=== PATIENT | male | born 1935 | race Caucasian/White ===

== ENCOUNTER 2024-12-01 11:12 | Inpatient (IN) | payer MEDICARE, SELFPAY ==
[2024-12-01] VITALS (12 sets, daily range): BP systolic 97–122; BP diastolic 48–87; BMI 20.3
[2024-12-01 07:17] LABS: % Basophils 0.2 % (0-2); % Immature Granulocytes 0.6 % (0-0.5); % Monocytes 4.7 % (1.7-9.3); % Neutrophils 92.5 % (42.2-75.2); Absolute Immature Granulocytes 0.1 10^3/uL (0-0.05); Absolute Lymphocytes 0.3 10^3/uL (1.2-3.4); Absolute Monocytes 0.7 10^3/uL (0.1-0.6); Absolute Neutrophils 14.2 10^3/uL (1.4-6.5); Hematocrit 32.1 % (39.0-52.0); Hemoglobin 10.6 g/dL (13.0-18.0); Mean Corpuscular Hgb 32.3 pg (27.0-31.0); Mean Corpuscular Volume 97.9 fL (80.0-94.0); Mean Platelet Volume 11.3 fL (7.4-10.4); Nucleated Red Blood Cells % 0 % (-); Platelet Count 164 10^3/uL (130-400); Red Blood Cell Count 3.28 10^6/uL (4.70-6.10); Red Cell Dist. Width 12.9 % (11.5-14.5); White Blood Cell Count 15.3 10^3/uL (4.8-10.8)
[2024-12-01 07:23] LABS: APTT 25.5 Sec (23.4-35.0); INR 1.14; PT 14.9 Sec (11.4-14.6)
[2024-12-01 07:35] LABS: ALT (SGPT) 18 U/L (0-50); AST (SGOT) 28 U/L (17-59); Albumin 3.9 g/dl (3.5-5.0); Alkaline Phosphatase 74 U/L (38-126); Blood Urea Nitrogen 57 mg/dl (9-20); Calcium 10.5 mg/dl (8.4-10.2); Carbon Dioxide 24 mmol/L (22-30); Chloride 111 mmol/L (98-107); Estimated Creatinine Clearance 26 ml/min; Glucose 145 mg/dl (70-99); Potassium 5.1 mmol/L (3.5-5.1); Sodium 142 mmol/L (135-145); Total Protein 6.3 g/dl (6.3-8.2); eGFR 38.53
--- NOTE | 2024-12-01 07:45 | ED.GENMED ---
History of Present Illness
General
Chief Complaint: Fainting/Passed Out
Source: patient, records and previous hospital records
Exam Limitations: altered mental status
Time Seen by Provider: 12/01/24 07:20
Nursing documentation reviewed up to this point in time: agreed with
History of Present Illness
History of Present Illness:
89-year-old male presents with a syncopal event, he does intermittent self-catheterization twice a day was fine last night today could not catheterize himself apparently passed out here found to be in urinary retention with significant hematuria,
after bladder scan and straight cath, greater than 800 cc of urine three-way catheter with CBI was ordered, labs are noted he has a leukocytosis acute renal insufficiency, denies any blood thinners although he is not the best historian does look
like he does take aspirin although he does tell me he sees Dr. Hopson
Past History
Past History
ED Past Medical History: CAD and Other (Intermittent self cath)
ED Past Surgical History: None
Social History
Tobacco: Non-smoker
Alcohol: None
Drug: None
Living: with family
Employment: Retired
Review of Systems
Review of Systems
All Other Systems: Not applicable
Constitutional: Reports fatigue; Denies fever
EENT: Reports no symptoms
Respiratory: Reports no symptoms
Cardiac: Reports syncope
ABD/GI: Reports abdominal pain
: Reports difficulty voiding and bleeding
Musculoskeletal: Reports no symptoms
Neurological: Reports weakness
Phy Exam
Physical Exam
Physical Exam:
Physical Exam
General: Chronically ill male
Neck: Dry lips
Heart: s1/s2 regular rate and rhythm, no murmur. equal radial pulses.
Lungs: no acute respiratory distress. clear bilaterally
Abdomen: Tender in suprapubic region
Neuro: alert and oriented. no focal neurological deficits repetitive
Skin: no rash
Psychiatric: well kept. interactive and cooperative
Extremities: no edema.
Course
Orders/Labs/Results
Orders:
Orders
12/01/24 06:49
Straight cath- Treatment ONCE
Urinalysis Reflex To Culture Urgent
12/01/24 07:04
Complete Blood Count/With Diff Urgent
Comprehensive Metabolic Panel Urgent
PTT Urgent
Prothrombin Time Urgent
12/01/24 07:07
CBI- Treatment PRN
Solution: saline
Irrigate to Clear?: Yes
Reyes Placement- Treatment ONCE
Reason for insertion: Acute Retention
12/01/24 07:35
Electrocardiogram (*1) Urgent
Reason for Study: Shortness of Breath
EKG- Treatment ONCE
0.9% Sodium Chloride 1000 ml [Nss] 1,000 ml IV BOLUS
Piperacillin/Tazo 2.25 Gram [Zosyn] 2.25 grams in 50 ml IV NOW
Abnormal Lab Results
12/01/24
07:04
WBC 15.3 H 10^3/uL
(4.8-10.8)
RBC 3.28 L 10^6/uL
(4.70-6.10)
Hgb 10.6 L g/dL
(13.0-18.0)
Hct 32.1 L %
(39.0-52.0)
MCV 97.9 H fL
(80.0-94.0)
MCH 32.3 H pg
(27.0-31.0)
MPV 11.3 H fL
(7.4-10.4)
Abs Immat Gran (auto) 0.1 H 10^3/uL
(0-0.05)
Absolute Neuts (auto) 14.2 H 10^3/uL
(1.4-6.5)
Absolute Lymphs (auto) 0.3 L 10^3/uL
(1.2-3.4)
Absolute Monos (auto) 0.7 H 10^3/uL
(0.1-0.6)
Immature Gran % 0.6 H %
(0-0.5)
Neutrophils % 92.5 H %
(42.2-75.2)
Lymphocytes % 2.0 L %
(20.5-51.1)
PT 14.9 H Sec
(11.4-14.6)
Chloride 111 H mmol/L
(98-107)
BUN 57 H mg/dl
(9-20)
Creatinine 1.7 H mg/dL
(0.7-1.3)
Glucose 145 H mg/dl
(70-99)
Calcium 10.5 H mg/dl
(8.4-10.2)
12/01/24 07:04
12/01/24 07:04
Vital Signs
Initial and Last Documented VS:
Initial Vital Signs
Pulse Resp Pulse Ox
79 18 98
12/01/24 06:47 12/01/24 06:47 12/01/24 06:47
Last Documented Vital Signs
Temp Pulse Resp Pulse Ox
98.1 F 82 18 98
12/01/24 06:59 12/01/24 06:59 12/01/24 06:59 12/01/24 06:59
MDM/Problems Addressed
Differential Diagnosis Includes:
Clot retention UTI malignancy mass
MDM/Problems Addressed:
Syncope trouble urinating clot retention
Chronic conditions affecting care: Other (Cardiac surgery)
Acute Exacerbation and/or Progression of Chronic Illness: Other (Cardiac)
*Radiology
Radiology exam reviewed: preliminary read by ED provider
*Pulse Oximetry
Patient hypoxic: no
Comment: 98
*EKG
Interpreted by ED Provider?: Yes
Interpretation: abnormal
Comparison EKG: no comparison EKG present
Heart Rate: 78
Rate: normal
Ischemia: non-specific ST changes
*Web Coordinator Interpretation
Rate: normal
Interpretation: normal
Heart Rate: 78
Rhythm: sinus
*Critical Care Note
Total Time (30-74mins, 75-104mins- exclusive of procedures): Not Applicable
Update Note
Update Note:
Update patient looks volume contracted, has a clot retention prior urine cultures noted will start CBI heart antibiotics check cultures start volume will require admission also check EKG due to syncope
8 AM, urine dark reddish maroonish requiring fairly aggressive CBI with intermittent hand irrigation prior urine culture noted antibiotics started volume started message sent to hospitalist and urologist will require admission
ED Attending Note
-
Portions of this chart may have been created with voice recognition software.� Occasional wrong word or��sound alike� substitutions may have occurred due to the inherent limitations of voice recognition software.
Discharge Plan
Departure
Patient Disposition: Admit
Date of Disposition: 12/01/24
Time of Disposition: 08:05
Admit to: Telemetry
Presentation/result/management discussed w/ accepting MD/DO: Hospitalist
Patient with high blood pressure during this ER visit?: No
Condition: Fair
Discharge Problem:
Clot retention of urine, Syncope and collapse
Prescriptions:
No Action
multivitamin Tablet
1 tab PO .EVERYOTHERDAY
vitamin A 2,400 mcg Capsule
8,000 unit PO DAILY
cyanocobalamin (vitamin B-12) [Vitamin B-12] 1,000 mcg Tablet
1,000 mcg PO DAILY
folic acid 400 mcg Tablet
0.4 mg PO DAILY
tamsulosin 0.4 mg Capsule
0.4 mg PO QPM
ascorbic acid (vitamin C) [Vitamin C] 500 mg Capsule, Extended Release
500 mg PO DAILY
pyridoxine (vitamin B6) [Vitamin B-6] 100 mg Tablet
100 mg PO DAILY
finasteride 5 mg Tablet
5 mg PO HS
ezetimibe [Zetia] 10 mg Tablet
10 mg PO DAILY
cholecalciferol (vitamin D3) [Vitamin D3] 125 mcg (5,000 unit) Tablet
125 mcg PO DAILY
Fiber Gummies 2 gram Tablet,Chewable
2 g PO DAILY
Probiotic 4X 10-15 mg Tablet,Delayed Release (Dr/Ec)
1 tab PO DAILY
acetaminophen 325 mg Tablet
650 mg PO Q6HPRN PRN (Reason: ZEE, mild pain, or fever >101F) Qty: 0 0RF
aspirin 81 mg Tablet,Chewable
81 mg PO DAILY Qty: 0 0RF
Referrals:
Thuan Campos MD [Family Provider, Internal Medicine]
Interventions
Interventions:
*Risk Screen - Suicide Last Done: 12/01/24 06:47
*General Assessment Last Done: 12/01/24 06:47
*ED COVID-19 Vaccine History Last Done: 12/01/24 06:47
Discharge Date and Time
Print Language: TAIWANESE
[2024-12-01] MEDS: NSS 1000 IV (08:03)
--- NOTE | 2024-12-01 08:28 | EDRN ---
Pt arrived via EMS post syncopal epsiode after self catheterization. Daughter told EMS he has 'passed out' several times over past couple of days.Pt states he feels 'super tired' Hematuria started this am, but unable to empty bladder. Pt very
repetitive about daily routines and doesn't understand why he is here. Bladder scan showed > 850mls. Straight cath was unsuccessful in emptying bladder. [address] way 18french coude was placed without complication however very little outflow. Manually
irrigated several times and several clots dislodged. Urine grossly bloody and lots of clots passed. bladder eventually began to run with ease. Emptied 2200mls and 2nd irrigation bag running.
--- NOTE | 2024-12-01 08:30 | HPS.HSE ---
Family Physician
-
Family Physician: Thuan Campos
Chief Complaint
-
Hematuria
History of Present Illness
89-year-old male with past medical history of CAD, intermittently self catheterizes now presenting for inability to catheterize himself with subsequent syncopal episode. Patient noted to have significant urinary retention and hematuria evident on
bladder scan and straight cath. 800 cc of urine was noted upon self-catheterization. Pulse upon admission 79, respiratory rate 18, blood pressure 102/62, saturating 96% on room air. Afebrile. White count noted to be 15.3. Creatinine 1.7 (1.13
years ago). Follows up with Dr. Henderson of his outpatient. Is on aspirin, no other anticoagulation. No imaging from ED. Was given Zosyn, 1 L normal saline.
Medical History
Past Medical History
Past Medical History: Reports CAD and Other (Urinary retention, intermittently self-catheterizes)
Past Surgical History: Reports None
Social History
Tobacco: Non-smoker
Alcohol: None
Drug: None
Family History
Family History: Not pertinent
Allergies / Home Medications
Allergies reflects when Allergies were last updated in [employer].
Home Medications with original date entered in [employer]
Allergy/Medication List:
Allergies
Allergy/AdvReac Type Severity Reaction Status Date / Time
ciprofloxacin (From Cipro) Allergy Unknown Verified 05/27/22 07:34
Home Medications
ascorbic acid (vitamin C) 500 mg capsule,extended release (Vitamin C) 500 mg PO DAILY Supplement 03/29/22
cholecalciferol (vitamin D3) 125 mcg (5,000 unit) tablet (Vitamin D3) 125 mcg PO DAILY Supplement 03/29/22
cyanocobalamin (vitamin B-12) 1,000 mcg tablet (Vitamin B-12) 1,000 mcg PO DAILY Supplement 03/29/22
ezetimibe 10 mg tablet (Zetia) 10 mg PO DAILY High cholesterol 03/29/22
finasteride 5 mg tablet 5 mg PO HS Urinary issue/Prostatic 03/29/22
folic acid 400 mcg tablet 0.4 mg PO DAILY Supplement 03/29/22
multivitamin 1 tab PO .EVERYOTHERDAY Supplement 03/29/22
pyridoxine (vitamin B6) 100 mg tablet (Vitamin B-6) 100 mg PO DAILY Supplement 03/29/22
tamsulosin 0.4 mg capsule 0.4 mg PO QPM Urinary issue 03/29/22
vitamin A 2,400 mcg capsule 8,000 unit PO DAILY Supplement 03/29/22
inulin 2 gram chewable tablet (Fiber Gummies) 2 g PO DAILY Gastrointestinal issue 05/12/22
B.animalis-B.bifidum-B.infantis-B.longum 10 mg-15 mg tablet,delay rel (Probiotic 4X) 1 tab PO DAILY Gastrointestinal issue 05/27/22
acetaminophen 325 mg tablet 650 mg (2 x 325 mg) PO Q6HPRN PRN ZEE, mild pain, or fever >101F #0 tabs 05/28/22
aspirin 81 mg chewable tablet 81 mg PO DAILY #0 tabs 05/28/22
Review of Systems
-
History Source: Patient
A 12 point ROS was completed and negative except as noted: Yes
Physical Exam
Vital Signs
Vital Signs
Temp Pulse Resp BP Pulse Ox
98.1 F 79 18 102/62 96
12/01/24 06:59 12/01/24 08:00 12/01/24 08:00 12/01/24 08:00 12/01/24 08:00
Physical Exam
General: Well Developed and Well Nourished
HEENT: NormoCephalic
Respiratory: Clear
Cardiac: S1/S2
GI: Non Tender and Other
Genito-urinary: Other (Tender in suprapubic region)
Musculoskeletal: No Clubbing
Neuro: Awake, Alert, Oriented and AO x 3
Laboratory Results
-
12/01/24 07:04
12/01/24 07:04
Laboratory Results
PT 14.9 Sec (11.4-14.6) H 12/01/24 07:04
INR 1.14 12/01/24 07:04
APTT 25.5 Sec (23.4-35.0) 12/01/24 07:04
Total Bilirubin 1.0 mg/dl (0.2-1.3) 12/01/24 07:04
AST 28 U/L (17-59) 12/01/24 07:04
ALT 18 U/L (0-50) 12/01/24 07:04
Alkaline Phosphatase 74 U/L (38-126) 12/01/24 07:04
Data Reviewed
-
Lab Data: Labs Reviewed by me
Impression/Plan
-
IMPRESSION:
89-year-old male with past medical history of CAD, intermittently self catheterizes now presenting for inability to catheterize himself with subsequent syncopal episode.
PLAN:
#Syncopal episode
� Most likely vasovagal secondary to catheterization and inability to obtain urine
� Continue telemetry
� Can trend troponin, no chest pain
- F/u EKG
#Hematuria
� Unclear if infected urine or not
� UA still pending, follow-up urine cultures if positive
� Continue empiric antibiotics for now
� CBI in place
� Urology consulted
� CT abdomen pelvis -moderate hemorrhagic products in the bladder; many large bladder stones; moderate diffuse bowel thickening concerning for cystitis versus bladder outlet obstruction; severe prostate hypertrophy
�Hold aspirin for now
#Urinary retention
-2/2 to bladder stones and prostate hypertrophy
-Moderate hemorrhagic products in the bladder; many large bladder stones; moderate diffuse bowel thickening concerning for cystitis versus bladder outlet obstruction; severe prostate hypertrophy
- Plan to go to the OR tomorrow for evacuation of clot, fulguration and retrieval of any bladder stones
#leukocytosis
-reactive v 2/2 to infectious source
-empiric abx
-f/u cultures
#RAJ
� Most likely suspect postrenal with urinary retention
� CT abdomen/pelvis
� Monitor with CBI
� IV fluids
#DVT prophylaxis
� SCDs
[2024-12-01] MEDS: ZOSYN 50 IV ×3 (08:47→18:02)
[2024-12-01 10:07] LABS: Urine Albumin 4+ (Neg - Trace); Urine Bilirubin Negative (Negative); Urine Glucose Negative (Negative); Urine Ketone Negative (Negative); Urine Leukocyte 1+ (Negative); Urine Nitrite Negative (Negative); Urine Occult Blood 4+ (Negative); Urine Specific Gravity 1.005 (<1.030); Urine Urobilinogen Negative (Neg - 1+)
[2024-12-01 10:08] LABS: Urine Character Bloody (Clear); Urine Color Red
[2024-12-01 10:16] LABS: Urine Red Blood Cell >100 /HPF (0-2)
--- NOTE | 2024-12-01 10:18 | W.PN.URO.CBU ---
Today's Communication / Plan
-
TO OP ROOM TUESDAY CBI AND HAND IRRIGATEUNTILTHEN
Assessment / Plan
-
HUGE PROSTAE NOW CLORS AND ELEVTAED WBC AND BLADDER STONES TRIED TO HABD IRRIGATE BUT STIL MUCH DEBRIS WILL TAKE TO OP ROOM TUESDAY AM AND EVACUATION OF CLOT FULGERATION AND RETRIEV EIF ABLE ANY BLADDER STONES
Diagnosis
-
Date of Service: December 01, 2024
-
Patient Diagnosis:
BPH HEMATURIA POSSIBLY UTI AND BLADDER STONES WITH CLOT RETENTION
Post Op Day:
Subjective
-
CANNOT VOID
Objective
-
Vital Signs
Temp Pulse Resp BP Pulse Ox
98.1 F 79 18 102/62 96
12/01/24 06:59 12/01/24 08:00 12/01/24 08:00 12/01/24 08:00 12/01/24 08:00
Intake and Output
11/30/24 12/01/24 12/02/24
06:59 06:59 06:59
Output Total 1000 / 1000
Balance -1000 / -1000
Output:
True Urine Output from CBI 1000 / 1000
Laboratory Results
12/01/24 07:04
12/01/24 07:04
Review of Systems
-
: Difficulty Voiding and Bleeding
Physical Exam
-
General - well developed, well nourished, no acute distress
Chest - clear bilaterally
Abdomen - soft, non-tender, positive bowel sounds, no CVAT, no incisional pain or distention
Genitalia - normal
Rectal - normal
Skin - warm & dry with no rash
Neuro - AOx3, no motor deficits
Extremities - no clubbing, no cyanosis, no edema
Incision - clean, dry
Dressing - clean, dry, intact
Care Review
Data Reviewed
Discussed with: Hospitalist and Nursing
CT Scan: Image Pers Reviewed
--- NOTE | 2024-12-01 10:59 | CM ---
Reviewed the chart notes and spoke with the patient at the bedside. The patient resides with his daughter in a two story home with no steps to enter. The patient reports no DME/VN/SNF in the past. The patient confirmed preferred pharmacy is
[facility]. CM continues to be available to patient/family and is monitoring medical plan for needs at discharge.
Plan: Discharge plans will depend on the patient's progress.
--- NOTE | 2024-12-01 11:51 | EDRN ---
CBI stopped flowing and we could not flush ports. Urology came back down and we had to change 3 way cath for second time. Pulled Lido urojet and 22 greek cath placed by urology. Irrigation restarted and running clearer then previous
[2024-12-01] MEDS: LR 1000 IV ×2 (12:52→17:42)
[2024-12-01] MEDS: FLOMAX 0.4 MG PO ×2 (13:04→16:57)
--- NOTE | 2024-12-01 13:29 | PTCARENOTE ---
PT admitted from ED AOx3 though very forgetful, bed alarm placed, daughter at bedside. LCTA B/L on RA. NSR. abd soft NT. CBI running fast with bright red many clots. stat lock applied. Skin CDI +PP b/l no edema. IVF and IV ABT. NPO after MN. ,
reviewed POC with pt and daughter, whom he lives with. CB in reach instructed to use.
[2024-12-01 13:30] LABS: Troponin I 0.013 ng/ml
--- NOTE | 2024-12-01 16:15 | PTCARENOTE ---
contacting attending r/t HR sinus tach 130's-140's. BP 99/45, LR bolus. pt c/o 04/05 pain, inconsistent with where he is reporting the pain is- sometimes stated abd, other times penis. [address] way cath irrigated. large thick clot. BP, pain and HR
improved. HR 97 NSR
[2024-12-01 18:40] LABS: Troponin I 0.014 ng/ml
[2024-12-01] MEDS: PROSCAR 5 MG PO (21:35)
[2024-12-01 23:41] LABS: Troponin I < 0.012 ng/ml
[2024-12-02] VITALS (14 sets, daily range): BP systolic 98–120; BP diastolic 51–68
[2024-12-02] MEDS: ZOSYN 50 IV ×4 (01:13→23:04)
[2024-12-02] MEDS: LR 1000 IV ×2 (06:09→20:30)
[2024-12-02 07:09] LABS: Hematocrit 22.1 % (39.0-52.0); Hemoglobin 7.2 g/dL (13.0-18.0); Mean Corp Hgb Conc. 32.9 g/dL (33.0-37.0); Mean Corpuscular Hgb 32.1 pg (27.0-31.0); Mean Corpuscular Volume 97.8 fL (80.0-94.0); Mean Platelet Volume 11.8 fL (7.4-10.4); Platelet Count 122 10^3/uL (130-400); Red Blood Cell Count 2.24 10^6/uL (4.70-6.10); Red Cell Dist. Width 13.2 % (11.5-14.5); White Blood Cell Count 9.7 10^3/uL (4.8-10.8)
[2024-12-02 07:14] LABS: Blood Urea Nitrogen 51 mg/dl (9-20); Carbon Dioxide 27 mmol/L (22-30); Chloride 112 mmol/L (98-107); Estimated Creatinine Clearance 37 ml/min; Glucose 94 mg/dl (70-99); Sodium 141 mmol/L (135-145); eGFR 58.53
--- NOTE | 2024-12-02 08:41 | W.PN.HOSP.TC ---
Today's Communication/Plan
-
see A/P
Assessment / Plan
Assessment / Plan
HPI: 89-year-old male with past medical history of CAD, intermittently self catheterizes; p/w inability to catheterize himself with subsequent syncopal episode. Patient noted to have significant urinary retention and hematuria evident on bladder
scan and straight cath. 800 cc of urine was noted upon self-catheterization.
White count noted to be 15.3 on admission. Creatinine 1.7 (1.13 years ago). Follows up with Dr. Henderson of his outpatient. On aspirin, no other anticoagulation. Was given Zosyn, 1 L normal saline.
A/P:
# Syncopal episode
Most likely vasovagal secondary to catheterization and inability to obtain urine
Continue telemetry
troponin negative, no chest pain
# Gross hematuria
# Acute blood loss anemia
# Urinary retention, 2/2 to bladder stones and prostate hypertrophy
Hgb 10.6 -> 7.2 today, transfuse [address] abdomen pelvis- moderate hemorrhagic products in the bladder; many large bladder stones; moderate diffuse bowel thickening concerning for cystitis versus bladder outlet obstruction; severe prostate hypertrophy
Follow urine culture
Cont empiric antibiotic with Zosyn for now
Cont CBI
Urology on board, plan for clot evacuation today 12/02
Hold aspirin for now
# leukocytosis, resolved hence likely reactive
Cont empiric abx as above
f/u cultures
# RAJ, likely combination of prerenal and postrenal component
SCr improve from 1,.7 to 1.2 following IVF
Cont gentle IVF
DVT prophylaxis� SCDs
FC
DW RN
Anticipated Discharge: > 48 hours
Subjective/Interval History
-
Date of Service: December 02, 2024
Objective Data
-
Labs:
Laboratory Results
12/02/24 12/02/24
05:33 05:34
WBC 9.7
Hgb 7.2 L D
Hct 22.1 L
Plt Count 122 L D
Sodium 141
Potassium 4.0
Chloride 112 H
Carbon Dioxide 27
BUN 51 H
Creatinine 1.2
Glucose 94
Calcium 9.0 D
Vital Signs:
Vital Signs
Temp Pulse Resp BP Pulse Ox
36.6 C 91 16 107/58 95
12/02/24 07:29 12/02/24 07:29 12/02/24 07:29 12/02/24 07:29 12/02/24 07:29
I&O
12/01/24 12/02/24 12/03/24
06:59 06:59 06:59
Intake Total 900 / 900
Output Total 3250 / 3250
Balance -2350 / -2350
Review of Systems
-
History Source: Patient
All other systems: Reviewed and negative
Physical Exam
-
General: Well Developed, No Apparent Distress, Comfortable and Conversant; Negative Respiratory Distress
HEENT: Normocephalic, Atraumatic, Nose Appears Normal and Ears Appear Normal; Negative Oxygen
Respiratory: Clear to Auscultation and Non Labored Respirations; Negative Accessory Resp Muscle Use
Cardiac: Regular Rhythm and S1/S2
GI: Soft, Nontender, Nondistended and Normal Bowel Sounds
Genito-urinary: Continuous Bladder Irrigation
Skin: Warm and Dry
Neuro: Awake and Alert
Psych: Calm and Intact Judgement/Insight
Data Reviewed
-
CT Scan: Report Reviewed by me
Labs: Labs Reviewed by me
--- NOTE | 2024-12-02 09:24 | PTCARENOTE ---
Blood consent needed for blood transfusion. Dr. Dunham notified and came to floor. Per Dr. Dunham. PRBCs ordered and will be transfused in the OR or back when pt arrives to floor. Care ongoing.
--- NOTE | 2024-12-02 12:47 | W.SUR.POST ---
Surgical Immediate Post Op
Note
Pre Op Diagnosis: hemorrhagic cystitis clot retention bph
Post Op Diagnosis: same
Procedure Performed:cysto evacuation of clots fulgeration bleeding sites
Primary Surgeon: zelda
Secondary Surgeons:
Anesthesia: general dr cortez
Estimated Blood Loss: 5
Fluids: nss
Drains/Shunts: [address]
Specimens/Cultures:
Doppler/Duplex/Angio (Y/N):
Complications: 0
Operative Findings: huge amount clots ab fraible prostate and multiple lg bladder stones
[2024-12-02] MEDS: ZOSYN IV (13:04)
--- NOTE | 2024-12-02 13:41 | PTCARENOTE ---
Pt returned from OR at 1335 in a bed with a 3 way edward and CBI output is clear. Pt is 97% on RA. Pt has knee high scds/teds. Pt oriented to room and call ravi. Bed alarm in place for safety. Bed locked and in lowest position. Care ongoing.
[2024-12-02] MEDS: FLOMAX 0.4 MG PO (17:47)
[2024-12-02] MEDS: PROSCAR 5 MG PO (21:05)
[2024-12-03] VITALS (8 sets, daily range): BP systolic 93–126; BP diastolic 38–78; PULSE 77
[2024-12-03] MEDS: ZOSYN 50 IV ×4 (05:04→23:00)
[2024-12-03] MEDS: LR 1000 IV ×2 (05:05→18:40)
[2024-12-03 07:13] LABS: Hematocrit 23.4 % (39.0-52.0); Hemoglobin 7.8 g/dL (13.0-18.0); Mean Corp Hgb Conc. 33.3 g/dL (33.0-37.0); Mean Corpuscular Hgb 31.6 pg (27.0-31.0); Mean Corpuscular Volume 94.7 fL (80.0-94.0); Mean Platelet Volume 11.7 fL (7.4-10.4); Platelet Count 122 10^3/uL (130-400); Red Blood Cell Count 2.47 10^6/uL (4.70-6.10); Red Cell Dist. Width 14.8 % (11.5-14.5); White Blood Cell Count 10.9 10^3/uL (4.8-10.8)
[2024-12-03 08:17] LABS: Blood Urea Nitrogen 34 mg/dl (9-20); Calcium 9.2 mg/dl (8.4-10.2); Carbon Dioxide 27 mmol/L (22-30); Chloride 110 mmol/L (98-107); Estimated Creatinine Clearance 34 ml/min; Glucose 88 mg/dl (70-99); Potassium 4.4 mmol/L (3.5-5.1); Sodium 138 mmol/L (135-145); eGFR 53.17
--- NOTE | 2024-12-03 10:22 | W.PN.HOSP.TC ---
Addendum entered and electronically signed by Emily Dunham MD 12/03/24 11:02:
pt refused blood transfusion today.
Cont to monitor Hgb
Original Note:
Today's Communication/Plan
-
see A/P
additional PRBC today
PT OT Eval
Assessment / Plan
Assessment / Plan
HPI: 89-year-old male with past medical history of CAD, intermittently self catheterizes; p/w inability to catheterize himself with subsequent syncopal episode. Patient noted to have significant urinary retention and hematuria evident on bladder
scan and straight cath. 800 cc of urine was noted upon self-catheterization.
White count noted to be 15.3 on admission. Creatinine 1.7 (1.13 years ago). Follows up with Dr. Henderson of his outpatient. On aspirin, no other anticoagulation. Was given Zosyn, 1 L normal saline.
A/P:
# Syncopal episode
Most likely vasovagal secondary to catheterization and inability to obtain urine
Continue telemetry
troponin negative, no chest pain
# Gross hematuria
# Acute blood loss anemia
# Urinary retention, 2/2 to bladder stones and prostate hypertrophy
s/p 1 unit PRBC, transfuse additional PRBC today for Hgb at 7.8
CT AP: moderate hemorrhagic products in the bladder; many large bladder stones; moderate diffuse bowel thickening concerning for cystitis versus bladder outlet obstruction; severe prostate hypertrophy
urine culture with GNR and Enterococcus
Cont empiric antibiotic Zosyn
s/p clot evacuation 6/8 per Uro
s/p CBI
Hold aspirin for now
# leukocytosis, likely reactive
Cont empiric abx as above
f/u cultures
# RAJ, likely combination of prerenal and postrenal components
SCr improve from 1.7 to 1.3 today
Cont gentle IVF
DVT prophylaxis� SCDs
FC
DW RN
Anticipated Discharge: 24 - 48 hours
Subjective/Interval History
-
Date of Service: December 03, 2024
Objective Data
-
Labs:
Laboratory Results
12/03/24
06:46
WBC 10.9 H
Hgb 7.8 L
Hct 23.4 L
Plt Count 122 L
Sodium 138
Potassium 4.4
Chloride 110 H
Carbon Dioxide 27
BUN 34 H
Creatinine 1.3
Glucose 88
Calcium 9.2
Vital Signs:
Vital Signs
Temp Pulse Resp BP Pulse Ox
36.6 C 56 18 93/38 94
12/03/24 07:10 12/03/24 07:10 12/03/24 07:10 12/03/24 07:10 12/03/24 07:10
I&O
12/02/24 12/03/24 12/04/24
06:59 06:59 06:59
Intake Total 900 / 900 2180 / 2180 120 / 120
Output Total 3250 / 3250 3050 / 3050 200 / 200
Balance -2350 / -2350 -870 / -870 -80 / -80
Review of Systems
-
History Source: Patient
All other systems: Reviewed and negative
Physical Exam
-
General: Well Developed, No Apparent Distress, Comfortable and Conversant; Negative Respiratory Distress
HEENT: Normocephalic, Atraumatic, Nose Appears Normal and Ears Appear Normal; Negative Oxygen
Respiratory: Clear to Auscultation and Non Labored Respirations; Negative Accessory Resp Muscle Use
Cardiac: Regular Rhythm and S1/S2
GI: Soft, Nontender, Nondistended and Normal Bowel Sounds
Genito-urinary: Continuous Bladder Irrigation
Skin: Warm and Dry
Neuro: Awake and Alert
Psych: Calm and Intact Judgement/Insight
Data Reviewed
-
CT Scan: Report Reviewed by me
Labs: Labs Reviewed by me
--- NOTE | 2024-12-03 10:43 | W.PN.URO.CBU ---
Today's Communication / Plan
-
teach pt leb=g bag edward assisted when ok by hospitaoist with edward
Assessment / Plan
-
henmuria resolved home when medical objectives met but with edward will remover as outptient teach edward leg bag care
Diagnosis
-
Date of Service: December 03, 2024
-
Patient Diagnosis:
Post Op Day:
Patient Diagnosis:
BPH HEMATURIA POSSIBLY UTI AND BLADDER STONES WITH CLOT RETENTION
Post Op Day:
Subjective
-
urine clear
Objective
-
Vital Signs
Temp Pulse Resp BP Pulse Ox
97.9 F 56 18 93/38 94
12/03/24 07:10 12/03/24 07:10 12/03/24 07:10 12/03/24 07:10 12/03/24 07:10
Intake and Output
12/02/24 12/03/24 12/04/24
06:59 06:59 06:59
Intake Total 900 / 900 2180 / 2180 120 / 120
Output Total 3250 / 3250 3050 / 3050 200 / 200
Balance -2350 / -2350 -870 / -870 -80 / -80
Intake:
Oral fluids 480 / 480 120 / 120
IV fluids (Total) 800 / 800 1550 / 1550
normosol 50 / 50
IV piggybacks 100 / 100 150 / 150
Output:
True Urine Output from CBI 3250 / 3250 3050 / 3050 200 / 200
True urine output from hand 0 / 0 0 / 0
irrigation
Laboratory Results
12/03/24 06:46
12/03/24 06:46
Review of Systems
-
: Difficulty Voiding
Physical Exam
-
General - well developed, well nourished, no acute distress
Chest - clear bilaterally
Abdomen - soft, non-tender, positive bowel sounds, no CVAT, no incisional pain or distention
Genitalia - normal
Rectal - normal
Skin - warm & dry with no rash
Neuro - AOx3, no motor deficits
Extremities - no clubbing, no cyanosis, no edema
Incision - clean, dry
Dressing - clean, dry, intact
Care Review
Data Reviewed
Discussed with: Nursing
--- NOTE | 2024-12-03 11:00 | PTCARENOTE ---
Pt refusing one unit of PRBC's ordered this morning for a HGB of 7.8. Ordering Physician Dr Dunham notified.
--- NOTE | 2024-12-03 14:35 | CM ---
CM following re: discharge planning.
Reviewed pt's chart, met with pt.
PT and OT evaluations noted - home PT/OT recommended. pt is aware he will have Reyes bag to go home with and pt expressed unclear ex[planation to whether or not he will agree to have Reyes bag ay home. At some point pt agrees to have Reyes bag and
emphasized his idea of self catheterization and a few minutes later pt criticized the plan to go home with Reyes.
At the end of conversation pt agrees to have VN services and he preferred [facility].
A referral to [facility] made.
Please fax discharge instructions to [facility] [phone]
D/C plan: home with [facility] and family support.
CM will follow with discharge plan updaters as hospitalization progresses
--- NOTE | 2024-12-03 15:19 | VNURNOTE ---
[facility] liaison met with patient at bedside. Explained indications for [facility], frequency, homebound status. He has not seen a PCP in about 4 years. Offered [facility], patient was receptive. Explained to pt that he would need to be seen by
[facility] for [facility] to accept. Patient adamantly refused [facility] and is refusing to go home with indwelling edward. Patient talked in circles and continued to say that he was straight cathing himself 2x/day at home and urinating on his own in
between st. caths. The patient stated he had an indwelling edward about 3 years ago and if he goes home w/it, he could manage it himself. Patient gave this author permission to speak with his daughter Geetha. Called Geetha, explained above. She
lives w/patient and was aware of his st cath schedule. She will speak with patient but understood that he did refuse for me.
Refusing [facility]
Liaison will follow up tomorrow to determine if patient changes his mind.
No referral placed yet.
[2024-12-03] MEDS: FLOMAX 0.4 MG PO (18:40)
[2024-12-03] MEDS: PROSCAR 5 MG PO (22:25)
[2024-12-04 03:00] VITALS: BP 105/48
[2024-12-04] MEDS: ZOSYN 50 IV ×3 (05:07→17:12)
[2024-12-04] MEDS: LR 1000 IV (05:40)
[2024-12-04 06:10] LABS: Hematocrit 23.1 % (39.0-52.0); Hemoglobin 7.6 g/dL (13.0-18.0); Mean Corp Hgb Conc. 32.9 g/dL (33.0-37.0); Mean Corpuscular Hgb 31.4 pg (27.0-31.0); Mean Corpuscular Volume 95.5 fL (80.0-94.0); Mean Platelet Volume 11.7 fL (7.4-10.4); Platelet Count 127 10^3/uL (130-400); Red Blood Cell Count 2.42 10^6/uL (4.70-6.10); Red Cell Dist. Width 14.5 % (11.5-14.5); White Blood Cell Count 9.3 10^3/uL (4.8-10.8)
--- NOTE | 2024-12-04 06:15 | PTCARENOTE ---
Pt was very restless overnight, heart monitor reading were affected, multiple lead & electrodes changes, and even changed the monitor box were done to get clearer readings. HR & rhythm changes prompted an EKG per protocol, MONOTYPE CASTER notified placed order
for EKG and added MG to morning labs. EKG showed NSR with PACs. Copy of EKG TT to MONOTYPE CASTER and placed in pt chart.
[2024-12-04 06:31] LABS: Blood Urea Nitrogen 27 mg/dl (9-20); Carbon Dioxide 25 mmol/L (22-30); Chloride 111 mmol/L (98-107); Estimated Creatinine Clearance 37 ml/min; Glucose 96 mg/dl (70-99); Magnesium 1.9 mg/dl (1.6-2.3); Potassium 3.7 mmol/L (3.5-5.1); Sodium 139 mmol/L (135-145); eGFR 58.53
[2024-12-04 07:08] VITALS: BP 94/50
--- NOTE | 2024-12-04 10:28 | VNURNOTE ---
Spoke with patient at bedside. He continues to refuse [facility]. He is hoping to have edward removed at DC and resume straight cathing. Inquired if he spoke with his daughter last night and he stated he did and she agrees w/declining VN. DOMINGUEZ Cortez
updated.
[2024-12-04 11:05] VITALS: BP 108/56
--- NOTE | 2024-12-04 11:05 | W.PN.HOSP.TC ---
Addendum entered and electronically signed by Emily Dunham MD 12/04/24 11:52:
d/w Uro, since pt is refusing to continue edward following DC, OK to discontinue edward here and check TOV. Cont self cath as [employer]
Original Note:
Today's Communication/Plan
-
follow urine culture
Assessment / Plan
Assessment / Plan
HPI: 89-year-old male with past medical history of CAD, intermittently self catheterizes; p/w inability to catheterize himself with subsequent syncopal episode. Patient noted to have significant urinary retention and hematuria evident on bladder
scan and straight cath. 800 cc of urine was noted upon self-catheterization.
White count noted to be 15.3 on admission. Creatinine 1.7 (1.13 years ago). Follows up with Dr. Henderson of his outpatient. On aspirin, no other anticoagulation. Was given Zosyn, 1 L normal saline.
A/P:
# Syncopal episode
Most likely vasovagal secondary to catheterization and inability to obtain urine
Continue telemetry
troponin negative, no chest pain
# Gross hematuria
# Acute blood loss anemia
# Urinary retention, 2/2 to bladder stones and prostate hypertrophy
s/p 1 unit PRBC
pt refused additional blood transfusion
Hgb at 7.[address] AP: moderate hemorrhagic products in the bladder; many large bladder stones; moderate diffuse bowel thickening concerning for cystitis versus bladder outlet obstruction; severe prostate hypertrophy
urine culture growing Klebsiella and Enterococcus, awaiting sensitivity of Enterococcus.
Cont empiric antibiotic Zosyn
s/p clot evacuation 6/8 per Uro
s/p CBI
Hold aspirin for now
# leukocytosis, likely reactive, resolved
Cont empiric abx as above
f/u cultures
# RAJ, likely combination of prerenal and postrenal components
SCr improve from 1.7 to 1.2 today
DC further IVF
DVT prophylaxis� SCDs
FC
Anticipated Discharge: Within 24 hours
Subjective/Interval History
-
Date of Service: December 04, 2024
Objective Data
-
Labs:
Laboratory Results
12/04/24
05:16
WBC 9.3
Hgb 7.6 L
Hct 23.1 L
Plt Count 127 L
Sodium 139
Potassium 3.7
Chloride 111 H
Carbon Dioxide 25
BUN 27 H
Creatinine 1.2
Glucose 96
Calcium 9.0
Vital Signs:
Vital Signs
Temp Pulse Resp BP Pulse Ox
37.4 C 65 16 94/50 97
12/04/24 07:08 12/04/24 07:08 12/04/24 07:08 12/04/24 07:08 12/04/24 07:08
I&O
12/03/24 12/04/24 12/05/24
06:59 06:59 06:59
Intake Total 2180 / 2180 1840 / 1840 720 / 720
Output Total 3050 / 3050 1300 / 1300 950 / 950
Balance -870 / -870 540 / 540 -230 / -230
Review of Systems
-
History Source: Patient
All other systems: Reviewed and negative
Physical Exam
-
General: Well Developed, No Apparent Distress, Comfortable and Conversant; Negative Respiratory Distress
HEENT: Normocephalic, Atraumatic, Nose Appears Normal and Ears Appear Normal; Negative Oxygen
Respiratory: Clear to Auscultation and Non Labored Respirations; Negative Accessory Resp Muscle Use
Cardiac: Regular Rhythm and S1/S2
GI: Soft, Nontender, Nondistended and Normal Bowel Sounds
Genito-urinary: Negative Continuous Bladder Irrigation
Skin: Warm and Dry
Neuro: Awake and Alert
Psych: Calm and Intact Judgement/Insight
Data Reviewed
-
CT Scan: Report Reviewed by me
Labs: Labs Reviewed by me
--- NOTE | 2024-12-04 11:54 | W.PN.UPDATE ---
Update Note
Progress Note Update
Patient comfortable
Afeb
VSS
Urine essentially clear
---
Plan:
Remove Reyes catheter and have patient resume self-cath BID
He will be encouraged to strongly consider laser enucleation of the prostate with comcomitant bladder stone removal: he has declined outlet procedures in the past
Cleared for discharge from standpoint
--- NOTE | 2024-12-04 14:40 | CM ---
CM following re: discharge planning.
Reviewed pt's chart, met with pt.
Pt strongly refuses to go home with Reyes and to have VN services. is aware.
Pt preferred to continue straight catheterization. Pt stated he used to do it twice a day and pt now is aware he needs to do it every 6 hours. Pt stated he has enough catheter supply at home.
Per MD pt most likely will be ready for discharge tomorrow. Pt is aware, expressed his agreement and he stated his daughter will transport home. IMM reviewed, placed on chart, pt has a copy.
D/C plan: per pt's strong request, home with family support. Daughter to transport home.
CM will follow with discharge plan updaters as hospitalization progresses
[2024-12-04 15:00] VITALS: BP 116/55
[2024-12-04] MEDS: FLOMAX 0.4 MG PO (17:12)
[2024-12-04 19:00] VITALS: BP 106/52
[2024-12-04] MEDS: PROSCAR 5 MG PO (21:30)
[2024-12-04 23:00] VITALS: BP 123/64
[2024-12-05] MEDS: ZOSYN 50 IV ×3 (00:05→11:46)
[2024-12-05 03:00] VITALS: BP 109/61
--- NOTE | 2024-12-05 04:12 | PTCARENOTE ---
Pt refusing 0200 straight cath. stating he does not need pee. walked pt to bathroom to void unable to void. Pt requested to defer straight cath to later. Reassess pt at 0315. Pt was bladder scanned for 489. straight cath x3 attempts. third time clot
noted before clear yellow urine output. reinforced teaching on q6 hour straight caths.
[2024-12-05 07:10] VITALS: BP 95/42
[2024-12-05 07:28] LABS: Hemoglobin 7.9 g/dL (13.0-18.0); Mean Corp Hgb Conc. 32.9 g/dL (33.0-37.0); Mean Corpuscular Hgb 31.7 pg (27.0-31.0); Mean Corpuscular Volume 96.4 fL (80.0-94.0); Mean Platelet Volume 11.6 fL (7.4-10.4); Platelet Count 153 10^3/uL (130-400); Red Blood Cell Count 2.49 10^6/uL (4.70-6.10); Red Cell Dist. Width 14.3 % (11.5-14.5); White Blood Cell Count 5.8 10^3/uL (4.8-10.8)
[2024-12-05 07:53] LABS: Blood Urea Nitrogen 25 mg/dl (9-20); Calcium 9.2 mg/dl (8.4-10.2); Carbon Dioxide 25 mmol/L (22-30); Chloride 110 mmol/L (98-107); Estimated Creatinine Clearance 34 ml/min; Glucose 89 mg/dl (70-99); Potassium 4.1 mmol/L (3.5-5.1); Sodium 138 mmol/L (135-145); eGFR 53.17
--- NOTE | 2024-12-05 08:53 | W.PN.SURGUPD ---
Surgical Update
Surgical Update
Bladder calculi
Massive BPG
Enterococcus/Klebsiela bacteremia with hemorrhagic cystitis
---
Patient has resumed self-cath regimen
Cleared for discharge home when medically stable
--- NOTE | 2024-12-05 09:23 | W.PN.HOSP.TC ---
Addendum entered and electronically signed by Emily Dunham MD 12/05/24 13:47:
per ID, pt can be DC on amoxicillin 500mg po tid and doxycycline 100 mg po bid through 12/10/24.
Informed daughter about DC planning. She can pick pt up later today.
Updated RN
total DC time 51 min
Addendum entered and electronically signed by Emily Dunham MD 12/05/24 10:01:
Noted allergic reaction to Cipro. According to daughter, pt has had severe allergic reaction to Cipro causing heart attack and landing in the hospital, hence cannot use Levaquin for complicated UTI.
ID CS for Abx recc.
Hold DC today
total time spent 51 min discussing care with daughter
Original Note:
Today's Communication/Plan
-
see A/P
Assessment / Plan
Assessment / Plan
HPI: 89-year-old male with past medical history of CAD, intermittently self catheterizes; p/w inability to catheterize himself with subsequent syncopal episode. Patient noted to have significant urinary retention and hematuria evident on bladder
scan and straight cath. 800 cc of urine was noted upon self-catheterization.
White count noted to be 15.3 on admission. Creatinine 1.7 (1.13 years ago). Follows up with Dr. Henderson of his outpatient. On aspirin, no other anticoagulation. Was given Zosyn, 1 L normal saline.
A/P:
# Syncopal episode
Most likely vasovagal secondary to catheterization and inability to obtain urine
Continue telemetry
troponin negative, no chest pain
# Gross hematuria
# Acute blood loss anemia
# Urinary retention, 2/2 to bladder stones and prostate hypertrophy
# complicated UTI in setting of kidney stones
CT AP: moderate hemorrhagic products in the bladder; many large bladder stones; moderate diffuse bowel thickening concerning for cystitis versus bladder outlet obstruction; severe prostate hypertrophy
s/p clot evacuation 12/02 per Uro
s/p CBI
s/p 1 unit PRBC during OR
pt refused additional blood transfusion. Hgb improved to 7.9 today
urine culture growing Klebsiella and Enterococcus, sensitivities reviewed. Anticipate to change Zosyn to Levaquin for 10 more days (total 14 days for complicated UTI)
Can resume aspirin following DC
leukocytosis has resolved
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 Edward removed 12/04
# RAJ, likely combination of prerenal and postrenal components
SCr improve from 1.7 to 1.3 today
DC further IVF
DVT prophylaxis� SCDs
FC
DW RN and CM
updated daughter on the phone
Anticipated Discharge: Today
Subjective/Interval History
-
Date of Service: December 05, 2024
Objective Data
-
Labs:
Laboratory Results
12/05/24
06:12
WBC 5.8
Hgb 7.9 L
Hct 24.0 L
Plt Count 153 D
Sodium 138
Potassium 4.1
Chloride 110 H
Carbon Dioxide 25
BUN 25 H
Creatinine 1.3
Glucose 89
Calcium 9.2
Vital Signs:
Vital Signs
Temp Pulse Resp BP Pulse Ox
36.9 C 60 16 95/42 96
12/05/24 07:10 12/05/24 07:10 12/05/24 07:10 12/05/24 07:10 12/05/24 07:10
I&O
12/04/24 12/05/24 12/06/24
06:59 06:59 06:59
Intake Total 1840 / 1840 940 / 940
Output Total 1300 / 1300 2700 / 2700
Balance 540 / 540 -1760 / -1760
Review of Systems
-
History Source: Patient
All other systems: Reviewed and negative
Physical Exam
-
General: Well Developed, No Apparent Distress, Comfortable and Conversant; Negative Respiratory Distress
HEENT: Normocephalic, Atraumatic, Nose Appears Normal and Ears Appear Normal; Negative Oxygen
Respiratory: Clear to Auscultation and Non Labored Respirations; Negative Accessory Resp Muscle Use
Cardiac: Regular Rhythm and S1/S2
GI: Soft, Nontender, Nondistended and Normal Bowel Sounds
Genito-urinary: Negative Edward or Continuous Bladder Irrigation
Skin: Warm and Dry
Neuro: Awake and Alert
Psych: Calm
Data Reviewed
-
CT Scan: Report Reviewed by me
Labs: Labs Reviewed by me
[2024-12-05 09:30] VITALS: BP 117/70; PULSE 81
--- NOTE | 2024-12-05 10:10 | PTCARENOTE ---
Pt c/o of having an 'itchy back'. Rash noted- Dr Dunham aware. Lotion applied to patients back. WOC consulted.
[2024-12-05 11:20] VITALS: BP 125/59
--- NOTE | 2024-12-05 12:59 | CON.ID ---
Consultation
-
Date/Time Consultation Requested: December 05, 2024 0956
Date/Time Consultation Performed: December 05, 2024 1300
Requesting Provider: Dr. Emily Dunham
Performing Provider: Dr. Melita William
Reason for Consultation: UTI
Chief Complaint / Past History
Chief Complaint
Blood in urine
History of Present Illness
89-year-old male with history of syncope, TAVR, BPH, urinary retention requiring self catheterization who presented to the hospital December 01 for gross hematuria. Patient reports no urine output when he tried to catheterize. He noted blood in the
urine. His bladder was distended. He then had syncope. In the ER white count of 15.3. CAT scan of the abdomen pelvis showed moderate hemorrhagic products in the bladder with many large bladder stones. The next day he was taken to the OR status
post cystoscopy, large clot clot evacuation and fulguration of bleeding sites. Urine culture grew Klebsiella 2 species, and Enterococcus. He is currently on Zosyn. Hospice was planning to discharge him on Cipro but patient reportedly had heart
attack due to Cipro. Today patient reports he is feeling much better. He no longer has the Reyes. No further blood in the urine.
Past History
Additional Past Medical History:
Hypertension
HLD
Cognitive impairment
BPH/urinary retention�intermittent self-catheterization
Chronic dizziness/orthostatic hypotension
History of syncopes
Aortic stenosis status post TAVR
CAD
Left hernia repair
Allergy History:
ciprofloxacin (From Cipro) Allergy (Verified 05/27/22 07:34)
Unknown
Medications Reviewed: Yes
Current Antibiotics:
Zosyn day 5
Social History
Tobacco: Non-Smoker
Alcohol: None
Drug: None
Living: With Family (daughter)
Family History
Family History: Not Pertinent
Review of Systems
Review of Systems
General: Negative Fever, Chills or Change in Appetite
HEENT: Negative Sinus Problems or Headache
Cardiovascular: Negative Chest Pain or Dyspnea
Respiratory: Negative Dyspnea or Cough
Gasteroenterology: Negative Nausea, Vomiting or Diarrhea
Genital / Urological: Negative Dysuria or Flank Pain
All systems: All other systems were reviewed and were negative
Vital Signs
Temp Pulse Resp BP Pulse Ox
97.8 F 86 16 125/59 95
12/05/24 11:20 12/05/24 11:20 12/05/24 11:20 12/05/24 11:20 12/05/24 11:20
Physical Exam
Physical Exam
Constitutional: No Acute Distress and Comfortable
Eyes: No Conjunctival Hemorrhage and Sclera Anicteric
Cardiovascular: Regular Rate and S1/S2
Pulmonary: Clear
Gastrointestinal: Soft, Non Tender, Non Distended and Normal Bowel Sounds
Genito-Urinary: Negative CVA Tenderness
Neurological: Awake and Alert
Lab / Diagnostic Study Results
12/05/24 06:12
12/05/24 06:12
Abs Immat Gran (auto) 0.1 10^3/uL (0-0.05) H 12/01/24 07:04
Absolute Neuts (auto) 14.2 10^3/uL (1.4-6.5) H 12/01/24 07:04
Absolute Lymphs (auto) 0.3 10^3/uL (1.2-3.4) L 12/01/24 07:04
Absolute Monos (auto) 0.7 10^3/uL (0.1-0.6) H 12/01/24 07:04
Absolute Basos (auto) 0.0 10^3/uL (0-0.2) 12/01/24 07:04
Immature Gran % 0.6 % (0-0.5) H 12/01/24 07:04
Neutrophils % 92.5 % (42.2-75.2) H 12/01/24 07:04
Lymphocytes % 2.0 % (20.5-51.1) L 12/01/24 07:04
Monocytes % 4.7 % (1.7-9.3) 12/01/24 07:04
Eosinophils % 0.0 % (0-6) 12/01/24 07:04
Basophils % 0.2 % (0-2) 12/01/24 07:04
PT 14.9 Sec (11.4-14.6) H 12/01/24 07:04
INR 1.14 12/01/24 07:04
Ur Squamous Epith Cells /LPF (Few) 12/01/24 09:33
Microbiology Results
Micro:
12/01/24 09:33 Urine Culture - Final
Urine Klebsiella pneumoniae
Klebsiella pneumoniae#2
Enterococcus faecalis
12/02/24 CT a/p: Findings suggesting moderate hemorrhagic products in the bladder. New Many large bladder stones.Significantly increased in size and number. Moderate diffuse bowel wall thickening concerning for cystitis versus bladder outlet
obstruction. New Air in the bladder due to recent Reyes catheter placement. New
Few tiny nonobstructing bilateral renal stones. Stable. Severe prostate hypertrophy. Stable. Bilateral adrenal thickening consistent benign adrenal hyperplasia. New
Assessment / Plan
# Gross hematuria with clot retention status post cystoscopy, clot evacuation December 02
# Complicated UTI
# History of BPH, urinary retention requiring self-catheterization
# Cipro allergy
-Ucx Klebsiella pneumonia x 2 strains, Enterococcus faecalis
- Can transition Zosyn (d5) to amoxicillin 500mg po tid and doxycycline 100 mg po bid through 12/10/24.
Care Review
Plan reviewed with: Physician (Dr. Dunham)
--- NOTE | 2024-12-05 13:55 | W.DCSUMMARY ---
Discharge Summary
Discharge Data
Date of Admission: 12/01/24
Date of Discharge: 12/05/24
-
Pending Results: No
Hospital Course
Principal Diagnosis:
Syncopal episode, most likely vasovagal secondary to catheterization and inability to obtain urine
Gross hematuria with acute blood loss anemia, resolved
Acute on chronic urinary retention 2/2 to bladder stones and prostate hypertrophy
Complicated UTI in setting of bladder stones
Chronic Diagnoses:�
Coronary artery disease
Intermittently self catheterization
BPH
Kidney stones
Consultations:�
Urologist
Infectious disease
Procedures:�
Clot evacuation 12/02 by Uro
Clinical course:�
This is a 89-year-old male with past medical history as stated above, who presented with inability to self catheterize and syncope.
Problem 1:
Syncopal episode, most likely vasovagal secondary to catheterization and inability to obtain urine.
He denied to chest pain, and his troponin was negative.
He was seen by PT OT and was recommended to return home with home health.
Problem 2:
Gross hematuria with acute blood loss anemia, resolved.
Acute on chronic urinary retention 2/2 to bladder stones and prostate hypertrophy.
Complicated UTI in setting of bladder stones.
His CT AP showed moderate hemorrhagic products in the bladder; many large bladder stones; moderate diffuse bowel thickening concerning for cystitis versus bladder outlet obstruction; severe prostate hypertrophy.
He underwent clot evacuation on 12/02 by Urologist.
He also completed CBI for gross hematuria which subsequently resolved.
He received 1 unit PRBC during OR, but refused subsequent blood transfusion.
His hemoglobin was stable at 7.9 on the day of discharge.
His urine culture grew Klebsiella and Enterococcus, sensitivities reviewed.
The patient received Zosyn while in the hospital, and was discharged with amoxicillin 500 mg po tid and doxycycline 100 mg po bid through 12/10/24 per ID.
He can resume prior to admission aspirin following discharge.
Of note, the patient refused to be discharged with a Reyes catheter, and insisted on resuming his prior to admission intermittent self-catheterization after discharge.
He has been informed to follow-up with urologist following discharge.
Problem 3:
RAJ, likely combination of prerenal and postrenal components.
His serum creatinine improved from 1.7 to 1.3 on the day of discharge.
He can check repeat BMP in 1 week following discharge.
As for the rest of his medical problems, they were stable during his hospital stay.
Discharge Plan
-
Patient Disposition: Home with Home Care
Discharge Diagnosis/Procedures: Syncopal episode most likely vasovagal secondary to self catheterization and inability to obtain urine;
Gross hematuria/Acute blood loss anemia;
Urinary retention due to bladder stones and prostate hypertrophy;
Complicated UTI in setting of kidney stones
Condition: Fair
Diet: As tolerated, Low Fat and Low Cholesterol
Activity: As tolerated
Driving Restrictions: As prior to admission
Referrals:
Bennett Noyola MD [Active, Urology]
Referral Note: call Dr. Hopson [phone] to set up post hospital care for bladder stones
Thuan Campos MD [Family Provider, Internal Medicine] - in less than 1 week
Additional Discharge Medication Instructions: Continue amoxicillin 500 mg three times a day and doxycycline 100 mg twice daily through 12/10/24.
Avoid sun exposure and dairy products with doxycycline.
Prescriptions:
New
amoxicillin 500 mg capsule
500 mg PO Q8H 5 Days Qty: 15 0RF
doxycycline hyclate 100 mg capsule
100 mg PO Q12H 5 Days Qty: 10 0RF
Continued
multivitamin Tablet
1 tab PO .EVERYOTHERDAY
vitamin A 2,400 mcg Capsule
8,000 unit PO DAILY
cyanocobalamin (vitamin B-12) [Vitamin B-12] 1,000 mcg Tablet
1,000 mcg PO DAILY
folic acid 400 mcg Tablet
0.4 mg PO DAILY
tamsulosin 0.4 mg Capsule
0.4 mg PO QPM
ascorbic acid (vitamin C) [Vitamin C] 500 mg Capsule, Extended Release
500 mg PO DAILY
pyridoxine (vitamin B6) [Vitamin B-6] 100 mg Tablet
100 mg PO DAILY
finasteride 5 mg Tablet
5 mg PO HS
ezetimibe [Zetia] 10 mg Tablet
10 mg PO DAILY
cholecalciferol (vitamin D3) [Vitamin D3] 125 mcg (5,000 unit) Tablet
125 mcg PO DAILY
Fiber Gummies 2 gram Tablet,Chewable
2 g PO DAILY
Probiotic 4X 10-15 mg Tablet,Delayed Release (Dr/Ec)
1 tab PO DAILY
acetaminophen 325 mg Tablet
650 mg PO Q6HPRN PRN (Reason: ZEE, mild pain, or fever >101F) Qty: 0 0RF
Rx Instructions:
Pt normal takes Advil, has not taken in two days
aspirin 81 mg tablet,chewable
162 mg PO DAILY
Rx Instructions:
2 baby aspirin 81mg
Discharge Orders:
Discharge Patient (As Directed); Ordered 12/05/24
Ordered By: Emily Dunham
Discharge Date and Time
Print Language: BELARUSIAN
--- NOTE | 2024-12-05 14:00 | WOUNDNOTE ---
WON RN NOTE: Asked to see patient for rash on back that is suspected from reaction to antibiotic, per hospitalist note. Patient said 'what rash?' after telling patient reason for wound care visit. Assessed skin and noted resolving rash on back,
patient reported it to be itchy only after I said something to him. Applied lotion and patient said that it feels much better. Will sign off.
--- NOTE | 2024-12-05 14:05 | CM ---
CM following re: discharge planning.
Reviewed pt's chart, met with pt.
Discharge order noted. Pt is aware, expressed his agreement with discharge and he stated his daughter will transport home. IMM reviewed yesterday.
Pt strongly refused to have VN services.
Pt preferred to continue straight catheterization and he stated he knows how to manage it.
D/C plan: per pt's strong request, home with family support. Daughter to transport home.
[2024-12-05 15:10] VITALS: BP 89/40
[2024-12-05 16:35] VITALS: BP 126/61
[2024-12-05] MEDS: TYLENOL 650 MG PO (16:36)
[2024-12-05] MEDS: FLOMAX 0.4 MG PO (17:05)
--- NOTE | 2024-12-05 19:14 | PTCARENOTE ---
Pt left in wheelchair with staff member and daughter. Discharge instructions went over with daughter. All questions answered.
== END 2024-12-05 19:15 | disposition home or self-care (01) | DRG 669 ==
LOC: 2 SOUTH 11:12
PROVIDERS: ADMITTING PHYSICIAN Internal Medicine; ATTENDING PHYSICIAN Internal Medicine; CONSULT PHYSICIAN Internal Medicine Infectious Disease; EMERGENCY PHYSICIAN Emergency Medicine; FAMILY PHYSICIAN Internal Medicine; OTHER PHYSICIAN Specialist
PROC: 0T5B8ZZ Destruction of Bladder, Via Natural or Artificial Opening Endoscopic (ICD-10-PCS; 2024-12-02)
PROC: 30233N1 Transfusion of Nonautologous Red Blood Cells into Peripheral Vein, Percutaneous Approach (ICD-10-PCS; 2024-12-02)
PROC: 0TCB8ZZ Extirpation of Matter from Bladder, Via Natural or Artificial Opening Endoscopic (ICD-10-PCS; 2024-12-02)
DX: N30.91 Cystitis, unspecified with hematuria (principal); D62 Acute posthemorrhagic anemia; N17.9 Acute kidney failure, unspecified; N21.0 Calculus in bladder; N40.1 Benign prostatic hyperplasia with lower urinary tract symptoms; R33.8 Other retention of urine; I25.10 Atherosclerotic heart disease of native coronary artery without angina pectoris; N20.0 Calculus of kidney; B95.2 Enterococcus as the cause of diseases classified elsewhere; B96.1 Klebsiella pneumoniae [K. pneumoniae] as the cause of diseases classified elsewhere; E78.5 Hyperlipidemia, unspecified; I10 Essential (primary) hypertension; I25.2 Old myocardial infarction; I95.1 Orthostatic hypotension; Z79.82 Long term (current) use of aspirin; Z88.1 Allergy status to other antibiotic agents; Z95.2 Presence of prosthetic heart valve
CPT/HCPCS: 51701; 51702; 51798; 74176; 80048; 80053; 81003; 81015; 83735; 84484; 85025; 85027; 85610; 85730; 86850; 86900; 86901; 86920; 87077; 87086; 87186; 93005; 96361; 96374; 97162; 97167; 97530; 99285; P9016

== ENCOUNTER 2025-01-03 21:21 | Inpatient (IN) | payer MEDICARE, BC, SELFPAY ==
[2025-01-03 15:23] VITALS: BP 115/73
[2025-01-03 15:57] LABS: Hematocrit 31.6 % (39.0-52.0); Hemoglobin 10.4 g/dL (13.0-18.0); Mean Corp Hgb Conc. 32.9 g/dL (33.0-37.0); Mean Corpuscular Volume 92.4 fL (80.0-94.0); Nucleated Red Blood Cells % 0 % (-); Platelet Count 209 10^3/uL (130-400); Red Cell Dist. Width 13.2 % (11.5-14.5)
[2025-01-03 16:05] LABS: INR 1.04; PT 14.1 Sec (11.4-14.6)
[2025-01-03 16:13] LABS: ALT (SGPT) 34 U/L (0-50); AST (SGOT) 56 U/L (17-59); Albumin 3.8 g/dl (3.5-5.0); Alkaline Phosphatase 83 U/L (38-126); Blood Urea Nitrogen 49 mg/dl (9-20); Calcium 9.7 mg/dl (8.4-10.2); Carbon Dioxide 25 mmol/L (22-30); Chloride 106 mmol/L (98-107); Glucose 122 mg/dl (70-99); Potassium 4.3 mmol/L (3.5-5.1); Sodium 136 mmol/L (135-145); Total Protein 6.2 g/dl (6.3-8.2); eGFR 53.17
--- NOTE | 2025-01-03 17:14 | ED.GENMED ---
History of Present Illness
General
Chief Complaint: Back Pain
Source: patient
Exam Limitations: none
Time Seen by Provider: 01/03/25 16:49
Nursing documentation reviewed up to this point in time: agreed with
History of Present Illness
History of Present Illness:
Patient is an 89-year-old male with history aortic stenosis, hypertension, hyperlipidemia who presents to the emergency department with daughter with multiple complaints today. Patient has had about 1 week of right lower back/hip pain which has
been progressively worsening. Pain seems to radiate from his right low back/flank area around into his right groin/hip and into his right thigh. Patient's daughter also reports that he has been having significantly bloody bowel movements over the
past few days which appears to be worsening.
Patient is very weak and was having difficulty with ambulation this morning. He also reports somewhat chronic shortness of breath and lightheadedness although does not feel the symptoms are significantly worse at this time. He has not had a fever.
He does not have any chest pain.
Patient denies any history of GI bleeding or bloody stools.
Daughter states that patient was admitted in the hospital about 1 month ago for 4 days with acute on chronic urinary retention secondary to bladder stones and BPH as well as gross hematuria with acute anemia. He was transfused 1 unit PRBCs and
underwent clot evacuation by urology.
Patient does self catheterize given neurogenic bladder.
Past History
Past History
ED Past Medical History: CAD and Other (Intermittent self cath)
ED Past Surgical History: None
Social History
Tobacco: Non-smoker
Alcohol: None
Drug: None
Living: with family
Employment: Retired
Review of Systems
Review of Systems
Allergies reviewed?: Yes
All Other Systems: ROS reviewed and negative except as documented in HPI and ROS
Phy Exam
Physical Exam
Physical Exam:
Vitals: Patient's vital signs are stable. Afebrile
General: Patient is frail appearing.
Skin: Warm and dry, no rashes or lesions
Head: Normocephalic, atraumatic
Eyes: Sclera nonicteric. EOMs intact. No nystagmus.
Throat: Protecting airway
Neck: Normal ROM, no cervical spine tenderness, no meningismus
Cardiac: Regular rate and rhythm, no murmurs.
Pulm: Normal respiratory effort, no wheezes, rales, rhonchi heard on exam
.
Abdomen: Abdomen soft. Diffuse tenderness in lower abdomen. No rebound tenderness or guarding.
Rectal: External hemorrhoids noted. Fecal impaction with light brown stool, Hemoccult positive. No active bleeding at this time however significant amount of dried blood noted in diaper.
Extremities: RLE atraumatic and nontender with full range of motion. Negative straight leg raise. RLE neurovascularly intact. No evidence of cyanosis or edema
Neuro: AAOx2. No focal deficits.
Psychiatric: Normal affect.
Course
Orders/Labs/Results
Orders:
Orders
01/03/25 Breakfast
NPO
Allow oral meds: Yes
Allow clear liquids: Sips of Clears
NPO with Ice Chips: Yes
01/03/25 15:37
Complete Blood Count/With Diff Urgent
Comprehensive Metabolic Panel Urgent
PT/INR [Prothrombin Time] Urgent
01/03/25 17:12
CT Abd/pelvis W Iv Cont Urgent
Comment:
Reason For Exam: Right flank pain, Right inguinal pain, bloody stoo
Pantoprazole [Protonix IV] 80 mg IV NOW STA
01/03/25 17:13
Electrocardiogram (*1) Urgent
Reason for Study: Shortness of Breath
01/03/25 17:14
EKG- Treatment ONCE
01/03/25 17:23
Sterile Water [Sterile Water For Injection] 20 ml .ROUTE .STK-MED
01/03/25 17:40
Type+Screen Urgent
01/03/25 19:53
Lactic Acid Q4H
Comment: CANCEL 2nd LACTIC ACID IF 1st LACTIC ACID IS LESS THAN 2
Urinalysis Reflex To Culture Urgent
Date Specimen was Collected: 01/03/25
Time Specimen was Collected: 15:29
Urine Microscopic Reflex Cult Urgent
Urine Culture Urgent
ROSCOE Source: U
Specimen Description:
Date Specimen was Collected: 01/03/25
Time Specimen was Collected: 15:29
01/03/25 20:27
Piperacillin/Tazo 3.375 Gram [Zosyn] 3.375 gram in 50 ml IV NOW
01/03/25 20:36
0.9% Sodium Chloride 500 ml [Nss] 500 ml IV BOLUS
01/03/25 21:04
Admit/Transfer Patient As Directed
Co-Sign Provider:
Level of Care: Inpatient admission
Assign to:: Medical/Surgical
Physician / Group: Sohail
Diagnosis: Stercoral Colitis, Fecal Impaction
Reason for Hospitalization: IV abx
Expected length of stay greater than two midnights?: Yes
ELOS- Estimated Length of Stay in days: 3
I certify the patient meets the requirements for IP care: Yes
PRN Pain Medication Management As Directed
May give lesser potent ordered pain med per pt: Yes
preference::
Protocol:: Medication orders for pain may be administered in a
manner that supports deferring to patient preference
when the pt is:
- Requesting an ordered lesser potent pain medication.
Least to most potent pain medications are defined
as: acetaminophen < NSAID < tramadol < opioids
(morphine, oxycodone, hydromorphone).
- Requesting a lesser dose of the same medication IF
ORDERED.
- Requesting a less intrusive route of administration
if both routes are prescribed by the provider (PO <
IV).
01/03/25 21:09
Code Status As Directed
Resuscitation Status: Full Code
01/03/25 22:42
0.9% Sodium Chloride 1000 ml [Nss] 1,000 ml IV 80 mls/hr
Acetaminophen [Tylenol] 650 mg PO Q4HPRN PRN
Finasteride [Proscar] 5 mg PO HS
Ondansetron Injectable [Zofran] 4 mg IV Q6HPRN PRN
01/03/25 22:42
Activity As Directed
Activity Level: Out of Bed-Early Mobility
With Assistance
Bladder Scan As Directed
Follow Bladder Retention/Intermittent Cath Algorithm?: Yes
PRN if no void in __ hours: 6
Frequency: Per Retention Algorithm
If Bladder Scan Result >: 400
then:: Straight cath
I&O [Intake/ Output] As Directed
Frequency: q12h
Pneumatic Compression Sleeves As Directed
Type: Knee high
Straight Cath As Directed
Frequency: Per Retention Algorithm
Additional Instructions: straight cath as needed per acute urinary retention algorithm for 24 hrs
Additional Instructions: for bladder scan greater than 400 mL
Vital Signs As Directed
Frequency: Per unit guidelines
Ot Eval And Treat Routine
Pt Eval And Treat Routine
Activity Level: Out of Bed-Early Mobility
DX Deep Vein Thrombosis Video Routine
01/04/25 06:50
Basic Metabolic Panel IN AM
Complete Blood Count/No Diff IN AM
Magnesium IN AM
01/04/25 08:00
Ezetimibe [Zetia] 10 mg PO DAILY
01/04/25 18:00
Tamsulosin [Flomax] 0.4 mg PO QPM
Abnormal Lab Results
01/03/25 01/03/25
15:37 19:53
RBC 3.42 L 10^6/uL
(4.70-6.10)
Hgb 10.4 L g/dL
(13.0-18.0)
Hct 31.6 L %
(39.0-52.0)
MCHC 32.9 L g/dL
(33.0-37.0)
MPV 10.5 H fL
(7.4-10.4)
Absolute Lymphs (auto) 0.7 L 10^3/uL
(1.2-3.4)
Neutrophils % 82.1 H %
(42.2-75.2)
Lymphocytes % 10.5 L %
(20.5-51.1)
BUN 49 H mg/dl
(9-20)
Glucose 122 H mg/dl
(70-99)
Total Protein 6.2 L g/dl
(6.3-8.2)
Urine Ketones 2+ A
(Negative)
Ur Occult Blood Reflex 4+ A
(Negative)
Leukocyte Esterase Rfl 3+ A
(Negative)
Urine RBC >100 A /HPF
(0-2)
Urine WBC (Reflex) 70-80 A /HPF
(0-5)
Urine Bacteria (Reflex) Many A
(Negative)
Urine Albumin (Reflex) 3+ A
(Neg - Trace)
01/03/25 15:37
01/03/25 15:37
Vital Signs
Initial and Last Documented VS:
Initial Vital Signs
Temp Pulse Resp BP Pulse Ox
97.9 F 99 20 115/73 97
01/03/25 15:23 01/03/25 15:23 01/03/25 15:23 01/03/25 15:23 01/03/25 15:23
Last Documented Vital Signs
Temp Pulse Resp BP Pulse Ox
98.0 F 82 20 128/83 99
01/04/25 07:16 01/04/25 07:16 01/04/25 07:16 01/04/25 07:16 01/04/25 07:16
MDM/Problems Addressed
Differential Diagnosis Includes:
Not limited to: Symptomatic anemia, acute GI bleeding, UTI, diverticulitis, sciatica, fecal impaction, bowel obstruction, etc.
MDM/Problems Addressed:
89 year-old male presenting with multiple complaints, including right lower back discomfort, as well as generalized weakness and frequent bowel movements passing bright red blood per rectum. No known fevers. No chest pain or shortness of breath. No
recent falls or trauma. Patient hemodynamically stable on arrival. On exam � patient generally weak appearing, however, in no apparent distress. Cardio/pulmonary assessment unremarkable. Abdomen soft with diffuse tenderness. Rectal exam reveals
fecal impaction with light brown, heme positive stool in vault. Significant amount of drief blood noted around area, however no active bleeding.
Patient appears to have multiple things going on. Will obtain labs, UA and monitor patient closely. Given history of bright red blood as well as back pain and abdominal pain will check CT scan abdomen/pelvis. No clear indication of MSK etiology of
back pain on exam.
Update: labs reviewed, which revealed only very mild anemia, which is actually improved from prior. Chemistry with elevation in BUN, although appears stable. CT scan reveals severe fecal impaction with findings consistent of stercoral colitis.
Patient was unable to tolerate initial rectal exam without significant discomfort � do not feel he will tolerate manual disinfection. Suspect some of patient�s back discomfort secondary to significant rectal distention/fecal impaction. Urine also
appears somewhat infected. Will start patient on IV antibiotics and admit to hospital for further management. Patient accepted to hospitalist service in stable condition.
Chronic conditions affecting care:
Hypertension, hyperlipidemia, neurogenic bladder
Acute Exacerbation and/or Progression of Chronic Illness:
Acute stercoral colitis
*Radiology
Radiology exam reviewed: radiology read reviewed
*Pulse Oximetry
SaO2: 97
Oxygen Mode of Delivery: Room air
Patient hypoxic: no
*EKG
Interpreted by ED Provider?: Yes
EKG Intrepretation Date: 01/03/25
Interpretation: abnormal
Comparison EKG: no changes
Heart Rate: 62
Rate: normal
Rhythm: sinus
Clawson: normal axis
Interval: normal QT interval
QRS Pattern: normal QRS
Ischemia: T-wave inversion
*Spray Worker Interpretation
Rate: normal
Interpretation: normal
Heart Rate: 82
Rhythm: sinus
*Critical Care Note
Total Time (30-74mins, 75-104mins- exclusive of procedures): Not Applicable
Patient Management
Discussion with other providers: Hospitalist
Escalation/DeEscalation of care consider admission/obs:
Admit for IV antibiotics, further management
ED Attending Note
-
Portions of this chart may have been created with voice recognition software.� Occasional wrong word or��sound alike� substitutions may have occurred due to the inherent limitations of voice recognition software.
Discharge Plan
Departure
Patient Disposition: Admit
Date of Disposition: 01/03/25
Time of Disposition: 20:28
Presentation/result/management discussed w/ accepting MD/DO: Hospitalist
Discharge Problem:
Stercoral colitis, Acute UTI
Interventions
Interventions:
*Risk Screen - Suicide Last Done: 01/03/25 15:23
*General Assessment Last Done: 01/03/25 17:51
*Neglect/Abuse Screening Last Done: 01/03/25 15:23
*ED- Fall Risk Assessment Last Done: 01/03/25 17:51
*ED COVID-19 Vaccine History Last Done: 01/03/25 17:51
*Nursing Disposition Last Done: 01/03/25 22:27
ED-Musculoskeletal Assessment Last Done: 01/03/25 17:51
Discharge Date and Time
Discharge Date/Time: 01/03/25 22:51
[2025-01-03 17:26] VITALS: BMI 20.2
[2025-01-03 17:30] VITALS: BP 132/59
[2025-01-03] MEDS: PROTONIX IV 80 MG IV (17:42)
[2025-01-03 20:12] LABS: Urine Character Cloudy (Clear)
[2025-01-03 20:21] LABS: Urine Red Blood Cell >100 /HPF (0-2); Urine Squamous Cell 0-2 /LPF (Few); Urine White Cell 70-80 /HPF (0-5)
--- NOTE | 2025-01-03 20:45 | HPS.HSE ---
Family Physician
-
Family Physician: * NONE
Chief Complaint
-
Constipation
History of Present Illness
Patient is an 89 y/o male past medical history of coronary artery disease, hyperlipidemia, BPH and chronic urinary retention who presents with constipation. Patient is confused during my evaluation requiring frequent redirection. Per emergency
department documentation patient has bee constipated for the past week, and has been having bright red blood per rectum for the past 3 days. Patient reports back pain that has been getting progressively worse. Concerns were also raised for a
possible urinary tract infection as he notes some blood in his urine during straight cath. There are no reports of fevers, sweats or chills.
Medical History
Past Medical History
Past Medical History: Reports Other
Additional Past Medical History:
Coronary Artery Disease
Aortic Stenosis s/p TAVR
Hyperlipidemia
Chronic Urinary Retention
BPH
Past Surgical History: Reports Other
Additional Past Surgical History:
Hernia Repair
TAVR
Social History
Tobacco: Non-smoker
Alcohol: None
Drug: None
Family History
Family History: Not pertinent
Allergies / Home Medications
Allergies reflects when Allergies were last updated in [facility].
Home Medications with original date entered in [facility]
Allergy/Medication List:
Allergies
Allergy/AdvReac Type Severity Reaction Status Date / Time
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
attack'
per
daughter
Home Medications
cholecalciferol (vitamin D3) 125 mcg (5,000 unit) tablet (Vitamin D3) 125 mcg PO DAILY Supplement 03/29/22
cyanocobalamin (vitamin B-12) 1,000 mcg tablet (Vitamin B-12) 1,000 mcg PO DAILY Supplement 03/29/22
ezetimibe 10 mg tablet (Zetia) 10 mg PO DAILY High cholesterol 03/29/22
finasteride 5 mg tablet 5 mg PO HS Urinary issue/Prostatic 03/29/22
folic acid 400 mcg tablet 0.4 mg PO DAILY Supplement 03/29/22
multivitamin 1 tab PO Q48H Supplement 03/29/22
pyridoxine (vitamin B6) 100 mg tablet (Vitamin B-6) 100 mg PO DAILY Supplement 03/29/22
tamsulosin 0.4 mg capsule 0.4 mg PO QPM Urinary issue 03/29/22
vitamin A 2,400 mcg capsule 8,000 unit PO DAILY Supplement 03/29/22
Pepcid 1 tab PO QPM 01/03/25
Probiotic 4 In 1 1 cap PO DAILY@1600 01/03/25
ascorbic acid (vitamin C) 500 mg tablet (Vitamin C) 500 mg PO DAILY 01/03/25
aspirin 81 mg tablet,delayed release 162 mg PO HS 01/03/25
ibuprofen 200 mg tablet (Advil) 200 mg PO .SEE BELOW PRN mild pain 01/03/25
inulin 2 gram chewable tablet 2 g PO DAILY@1600 01/03/25
Review of Systems
-
A 12 point ROS was completed and negative except as noted: Yes
Constitutional: Denies Fever
Respiratory: Denies Cough
Cardiac: Denies Chest Pain
Abdomen/GI: Denies Abdominal Pain, Nausea or Vomiting
Physical Exam
Vital Signs
Vital Signs
Temp Pulse Resp BP Pulse Ox
97.9 F 69 16 132/59 97
01/03/25 15:23 01/03/25 17:45 01/03/25 17:45 01/03/25 17:30 01/03/25 17:45
Physical Exam
General: Well Developed and Well Nourished
HEENT: Anicteric and Moist mucous membranes
Respiratory: Clear and Non Labored Respirations
Cardiac: S1/S2, Regular Rhythm and Murmur; No Tachycardia
GI: Soft, Tender (LLQ and suprapubic region) and Other (Positive slightly hyperactive bowel sounds)
Rectal: Other (ED provider noted dry blood in patient's diaper. Patient did not tolerate manual disimpaction in the ED)
Musculoskeletal: No Clubbing and No Cyanosis
Skin: Warm and Dry
Neuro: Awake, Alert and No Motor Deficits
Psych: Calm and Confused
Laboratory Results
-
01/03/25 15:37
01/03/25 15:37
Laboratory Results
PT 14.1 Sec (11.4-14.6) 01/03/25 15:37
INR 1.04 01/03/25 15:37
Lactic Acid 0.8 mmol/L (0.7-2.0) 01/03/25 19:53
Total Bilirubin 0.7 mg/dl (0.2-1.3) 01/03/25 15:37
AST 56 U/L (17-59) 01/03/25 15:37
ALT 34 U/L (0-50) 01/03/25 15:37
Alkaline Phosphatase 83 U/L (38-126) 01/03/25 15:37
Abd/Pelvis CT:
1. SEVERE FECAL IMPACTION in the RECTUM with severe rectal distention and ACUTE STERCORAL COLITIS.
2. Severe constipation with a large amount of fecal material throughout the entire colon.
3. Severe anterior and superior displacement of the prostate gland and urinary bladder by the severely distended rectum.
4. Moderate diffuse urinary bladder wall thickening consistent with cystitis and urinary bladder outlet obstruction.
5. Multiple intraluminal calculi in the urinary bladder.
6. Large 1.2 cm nonobstructing calculus in the distal left ureter.
7. Severely enlarged prostate gland.
8. Moderate to severe chronic bilateral renal disease.
9. Severe calcific atherosclerotic plaque in the abdominal aorta and left common iliac artery.
10. Mild diffuse hepatic steatosis.
11. 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
Data Reviewed
-
CT Scan: Report Reviewed by me
Lab Data: Labs Reviewed by me
Impression/Plan
-
Severe Fecal Impaction with Acute Stercoral Colitis
-Patient did not tolerate rectal exam in the emergency department
-Consult GI
-Continue NPO/IVFs
-Continue Zosyn
Urinary Tract Infection
-Reviewed prior culture data with Klebsiella and Enterococcus
-Continue Zosyn
Chronic Urinary Retention
-Continue intermittent straight cath
BPH
-Continue finasteride and tamsulosin
Coronary Artery Disease
-Continue aspirin
DVT Proph: SCDs
Code Status: Full Code
[2025-01-03] MEDS: ZOSYN 50 IV (21:01)
[2025-01-03 23:22] VITALS: BP 126/82; BMI 19.3
--- NOTE | 2025-01-03 23:42 | W.PN.UPDATE ---
Update Note
Progress Note Update
Patient seen and examined.
Please see the PA note for full details.
89 y/o man who presents with constipation. He is confused requiring frequent redirection. Per ED documentation, he has bee constipated for the past week, and has been having bright red blood per rectum for the past 3 days. He reports back pain
that has been getting progressively worse. There are no reports of fevers, sweats or chills. CT shows:
1. SEVERE FECAL IMPACTION in the RECTUM with severe rectal distention and ACUTE STERCORAL COLITIS.
2. Severe constipation with a large amount of fecal material throughout the entire colon.
3. Severe anterior and superior displacement of the prostate gland and urinary bladder by the severely distended rectum.
4. Moderate diffuse urinary bladder wall thickening consistent with cystitis and urinary bladder outlet obstruction.
5. Multiple intraluminal calculi in the urinary bladder.
6. Large 1.2 cm nonobstructing calculus in the distal left ureter.
7. Severely enlarged prostate gland.
8. Moderate to severe chronic bilateral renal disease.
9. Severe calcific atherosclerotic plaque in the abdominal aorta and left common iliac artery.
10. Mild diffuse hepatic steatosis.
11. 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
Past Medical History
Coronary Artery Disease
Aortic Stenosis s/p TAVR
Hyperlipidemia
Chronic Urinary Retention
BPH
Hernia Repair
TAVR
Physical Exam
General: Well Developed and Well Nourished
Respiratory: Clear and Non Labored Respirations
Cardiac: S1/S2, Regular Rhythm and Murmur; No Tachycardia
GI: Soft, Tender (LLQ and suprapubic region) and Other (Positive slightly hyperactive bowel sounds)
Psych: Calm and Confused
A/P
1. Severe Fecal Impaction with Acute Stercoral Colitis
-Patient did not tolerate rectal exam in the emergency department
-Consult GI
-Continue NPO with IVF
-Continue Zosyn
2. Probable Urinary Tract Infection
-Had prior culture data with Klebsiella and Enterococcus
-Continue Zosyn
3. Chronic Urinary Retention
-Continue intermittent straight cath
See PA note for full details on:
BPH
Coronary Artery Disease
[2025-01-04] MEDS: NSS 1000 IV ×2 (00:04→11:19)
[2025-01-04] MEDS: PROSCAR 5 MG PO ×2 (00:11→23:38)
[2025-01-04] MEDS: ZOSYN 50 IV ×4 (03:34→23:39)
[2025-01-04 07:16] VITALS: BP 128/83
--- NOTE | 2025-01-04 07:24 | W.PN.HOSP.TC ---
Today's Communication/Plan
-
Manual disimpaction was unsuccessful, Colorectal surgery has been consulted by GI.
Assessment / Plan
Assessment / Plan
Assessment:
This is an 89 y/o male with pmhx of coronary artery disease, hyperlipidemia, BPH with chronic urinary retention requiring intermittent straight cath, who presented to the ED on 01/03/2025 with constipation, back pain and confusion and was found to
have severe fecal impaction.
Plan:
Severe Fecal Impaction with Acute Stercoral Colitis
-GI following and colorectal surgery has been consulted. A second attempt at manual disimpaction has failed today, patient will likely need anesthesia to proceed with manual disimpaction. Patient has, at some times, been agreeable to anesthesia and
other times adamantly against it. These changes can occur rapidly, with different answers given only minutes apart. Will contact daughter.
-Continue NPO with IV fluids
-Continue Zosyn
Cognitive Impairment
-Unclear at this time if patient's confusion is at his baseline, or if he has had an acute increase in confusion preceding this hospitalization. No records at this time indicate a formal diagnosis of Dementia, though records form 04/14/2022 report
cognitive impairment
-Will likely have to ask daughter for more information regarding patient's baseline level of mentation as he was very forgetful and required frequent redirection during his discussion today.
Urinary Tract Infection in a patient who utilizes a straight catheter
-Prior cultures from 11/2024 have been positive for Klebsiella and Enterococcus
-Urine cultures today pending
-Continue Zosyn
BPH with Chronic Urinary Retention
-Continue intermittent straight Cath
-Continue home meds (Finasteride and tamsulosin)
Coronary Artery disease
-Continue Aspirin
Anticipated Discharge: 24 - 48 hours
Subjective/Interval History
-
Date of Service: January 04, 2025
When I first approached his room patient was undergoing an attempted manual disimpaction that was ultimately unsuccessful due to profound pain and the amount of fecal material impacted in the rectum.
When I went to speak with the patient less than 3 minutes following the end of the procedure, patient insisted that he had been in the hospital all day and that nothing had been done regarding his constipation. When I reminded him of the manual
disimpaction that he had just undergone, he reported not remembering this taking place. I had to redirect him and remind him numerous times during the 10 minutes I was in the room of what was going on and what had transpired, including things that
had occurred during the conversation. When I informed him that we may need to attempt manual disimpaction again with anesthesia, he was agreeable and asked when they would give him medication for this. However, only moments before he had expressed
discomfort at the idea of utilizing anesthesia to those who had been attempting to perform the manual disimpaction.
He denied any pain when I was in the room. He stated he has not been able to have a bowel movement today or yesterday, but was regular until that point per his own report. He initially stated this was why he came into the hospital, but later stated
he came into the hospital due to pain in his leg that interfered with his ability to walk. He later again affirmed he came to the hospital because he wasn't able to have a bowel movement, this time only for the last few hours with reports he had
been regular yesterday.
Objective Data
-
Labs:
Laboratory Results
01/04/25
06:50
WBC Pending
Hgb Pending
Hct Pending
Plt Count Pending
Sodium Pending
Potassium Pending
Chloride Pending
Carbon Dioxide Pending
BUN Pending
Creatinine Pending
Glucose Pending
Calcium Pending
Vital Signs:
Vital Signs
Temp Pulse Resp BP Pulse Ox
97.8 F 84 20 126/82 99
01/03/25 23:22 01/03/25 23:22 01/03/25 23:22 01/03/25 23:22 01/03/25 23:22
I&O
01/03/25 01/04/25 01/05/25
06:59 06:59 06:59
Intake Total 120 / 120
Output Total 500 / 500
Balance -380 / -380
Review of Systems
-
Unable to obtain full review of systems at this time due to: Dementia
History Source: Patient
Respiratory: Denies Trouble Breathing
Cardiac: Denies Chest Pain
Abdomen/GI: Reports Constipated (Duration of time in which he reports being constipated varies from hours to days); Denies Abdominal Pain or Nausea
Musculoskeletal: Reports Muscle Pain (Left thigh)
Physical Exam
-
General: Well Developed, Well Nourished and No Apparent Distress
HEENT: Normocephalic and Atraumatic
Respiratory: Clear to Auscultation
Cardiac: Regular Rhythm and S1/S2
GI: Soft, Nontender and Normal Bowel Sounds
Skin: Warm and Dry
Neuro: Awake, Alert and Oriented (Patient is not oriented to time)
Psych: Calm and Apparent Dementia
[2025-01-04 07:25] LABS: Hematocrit 29.8 % (39.0-52.0); Hemoglobin 9.5 g/dL (13.0-18.0); Mean Corp Hgb Conc. 31.9 g/dL (33.0-37.0); Mean Corpuscular Volume 95.5 fL (80.0-94.0); Platelet Count 183 10^3/uL (130-400); Red Cell Dist. Width 13.0 % (11.5-14.5)
[2025-01-04 07:54] LABS: Blood Urea Nitrogen 47 mg/dl (9-20); Calcium 9.2 mg/dl (8.4-10.2); Carbon Dioxide 26 mmol/L (22-30); Chloride 107 mmol/L (98-107); Estimated Creatinine Clearance 34 ml/min; Glucose 78 mg/dl (70-99); Magnesium 2.3 mg/dl (1.6-2.3); Potassium 4.0 mmol/L (3.5-5.1); Sodium 138 mmol/L (135-145); eGFR 58.53
--- NOTE | 2025-01-04 08:26 | CON.GI ---
Addendum entered and electronically signed by João Rothman MD 01/04/25 08:55:
Patient seen and examined, agree with nurse practitioner note. The patient is an 89-year-old male with past medical history as noted and cognitive impairment who presents with rectal pain and constipation. CT scan shows extremely large fecal
impaction with likely stercoral colitis. Attempts at rectal exam in the ER unsuccessful given severe pain. Rectal exam by our nurse practitioner showed large amount of stool in the vault though severe pain with digital exam, unable to tolerate.
His abdomen does have some mild left lower quadrant tenderness although otherwise is benign, and he has no other complaints.
1. Fecal impaction: With likely stercoral colitis, unable to tolerate rectal exam with disimpaction or enemas. At this point we will consult colorectal surgery, will likely need exam under anesthesia and disimpaction. Unfortunately not much more
to add from RN, will sign off, though please call with any further questions.
Original Note:
Consultation
-
Date/Time Consultation Requested: 01/03/252
Date/Time Consultation Performed: 01/04/25 0800
Requesting Provider: NETO Mayes
Performing Provider: Dr. Rothman/CARLOS Arce
Reason for Consultation: fecal impaction/stercoral colitis
Medical History
Chief Complaint / HPI
Chief Complaint: constipation
History of Present Illness:
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
room with constipation. Asked to evaluate for fecal impaction/stercoral colitis. Unfortunately the patient is confused and cannot give any history surrounding this. He states to me that he is here because of a 'urinary problem'. When I asked him
about bowel issues he states that he does have issues with constipation 'sometimes'. From review of records he had a CT of the abdomen and pelvis in the emergency room that showed severe fecal impaction with stercoral colitis. Per ER records he
was having bright red blood per rectum for the past 3 days. There were also reports of back pain as well. He did not tolerate rectal exam for disimpaction in the emergency room. He had no bowel movements while here since last evening. His
abdomen is soft, nontender and nondistended. The patient cannot elicit anything in particular. I did roll over the patient. There was some light brown fecal smearing on the pad. There was some excoriation in the perineal area that was mild with
erythema only. Upon palpation of this the patient was uncomfortable. He did not tolerate much of the rectal exam at all. He had a significant amount of discomfort. He would clench down. With redirection he did allow very small amount of solid
stool to be disimpacted that was light brown. There was no signs of blood. There is a very large amount of stool within his rectum that is not able to be disimpacted. Patient could not tolerate any significant disimpaction whatsoever. The
patient did ask us to stop the exam. He could not tolerate. Because of this consult will be placed to colorectal surgery as it may be necessary that he may require disimpaction under anesthesia.
Past Medical History
Past Medical History: Other (CAD, hyperlipidemia, BPH, chronic urinary retention with self-catheterization required, cognitive impairment, aortic stenosis status post TAVR)
Past Surgical History: Other (TAVR, hernia repair)
Social History
Tobacco: Non-Smoker
Alcohol: None
Drug: None
Living: With Family (Daughter Geetha)
Family History
Family History: Unable to Obtain
Allergies / Home Medications
Allergy/AdvReac Type Severity Reaction Status Date / Time
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
attack'
per
daughter
�Medication �Instructions �Recorded
cholecalciferol (vitamin D3) 125 125 mcg PO DAILY Supplement 03/29/22
mcg (5,000 unit) tablet (Vitamin
D3)
cyanocobalamin (vitamin B-12) 1,000 mcg PO DAILY Supplement 03/29/22
1,000 mcg tablet (Vitamin B-12)
ezetimibe 10 mg tablet (Zetia) 10 mg PO DAILY High cholesterol 03/29/22
finasteride 5 mg tablet 5 mg PO HS Urinary issue/Prostatic 03/29/22
folic acid 400 mcg tablet 0.4 mg PO DAILY Supplement 03/29/22
multivitamin 1 tab PO Q48H Supplement 03/29/22
pyridoxine (vitamin B6) 100 mg 100 mg PO DAILY Supplement 03/29/22
tablet (Vitamin B-6)
tamsulosin 0.4 mg capsule 0.4 mg PO QPM Urinary issue 03/29/22
vitamin A 2,400 mcg capsule 8,000 unit PO DAILY Supplement 03/29/22
Pepcid 1 tab PO QPM 01/03/25
Probiotic 4 In 1 1 cap PO DAILY@1600 01/03/25
ascorbic acid (vitamin C) 500 mg 500 mg PO DAILY 01/03/25
tablet (Vitamin C)
aspirin 81 mg tablet,delayed 162 mg PO HS 01/03/25
release
ibuprofen 200 mg tablet (Advil) 200 mg PO .SEE BELOW PRN 01/03/25
mild pain
inulin 2 gram chewable tablet 2 g PO DAILY@1600 01/03/25
Review of Systems
-
Unable to obtain full review of systems at this time due to: Other (Poor historian, however patient denies any abdominal complaints at present time)
Vital Signs
Temp Pulse Resp BP Pulse Ox
98.0 F 82 20 128/83 99
01/04/25 07:16 01/04/25 07:16 01/04/25 07:16 01/04/25 07:16 01/04/25 07:16
Physical Exam
Exam
General: No Apparent Distress
HEENT: Anicteric
Respiratory: Clear
Cardiac: Regular Rhythm
GI: Soft, Non Tender, Non Distended and Normal Bowel Sounds
Rectal: Other (Mild erythema perineal area, rectal exam performed with very large fecal impaction. Patient unable to tolerate rectal exam. Will clench down, only very small stool removed. No blood obvious)
Skin: Warm and Dry
Neuro: Awake, Alert and Oriented (To person and hospital. He states that either 2023 or 2024, forgets things immediately.)
Psych: Calm
Results
WBC 7.6 10^3/uL (4.8-10.8) 01/04/25 06:50
Hgb 9.5 g/dL (13.0-18.0) L 01/04/25 06:50
Hct 29.8 % (39.0-52.0) L 01/04/25 06:50
MCV 95.5 fL (80.0-94.0) H 01/04/25 06:50
Plt Count 183 10^3/uL (130-400) 01/04/25 06:50
Absolute Neuts (auto) 5.6 10^3/uL (1.4-6.5) 01/03/25 15:37
PT 14.1 Sec (11.4-14.6) 01/03/25 15:37
INR 1.04 01/03/25 15:37
Sodium 138 mmol/L (135-145) 01/04/25 06:50
Potassium 4.0 mmol/L (3.5-5.1) 01/04/25 06:50
Chloride 107 mmol/L (98-107) 01/04/25 06:50
Carbon Dioxide 26 mmol/L (22-30) 01/04/25 06:50
BUN 47 mg/dl (9-20) H 01/04/25 06:50
Creatinine 1.2 mg/dL (0.7-1.3) 01/04/25 06:50
Calcium 9.2 mg/dl (8.4-10.2) 01/04/25 06:50
Total Bilirubin 0.7 mg/dl (0.2-1.3) 01/03/25 15:37
AST 56 U/L (17-59) 01/03/25 15:37
ALT 34 U/L (0-50) 01/03/25 15:37
Alkaline Phosphatase 83 U/L (38-126) 01/03/25 15:37
Diagnostic Image Results:
CT abdomen and pelvis with IV contrast:
1. SEVERE FECAL IMPACTION in the RECTUM with severe rectal distention and ACUTE STERCORAL COLITIS.
2. Severe constipation with a large amount of fecal material throughout the entire colon.
3. Severe anterior and superior displacement of the prostate gland and urinary bladder by the severely distended rectum.
4. Moderate diffuse urinary bladder wall thickening consistent with cystitis and urinary bladder outlet obstruction.
5. Multiple intraluminal calculi in the urinary bladder.
6. Large 1.2 cm nonobstructing calculus in the distal left ureter.
7. Severely enlarged prostate gland.
8. Moderate to severe chronic bilateral renal disease.
9. Severe calcific atherosclerotic plaque in the abdominal aorta and left common iliac artery.
10. Mild diffuse hepatic steatosis.
11. 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
Prior GI Procedures:
EGD: Unknown
Colonoscopy: Unknown
Assessment / Plan
-
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
room with constipation. Asked to evaluate for fecal impaction/stercoral colitis. Patient with CT of the abdomen and pelvis which shows severe constipation with large amount of fecal material throughout entire colon. There is a severe fecal
impaction in the rectum with severe rectal distention and acute stercoral colitis. There are reports of bloody stools for the past 3 days however patient without any bloody stools here. Hemoglobin stable. Patient is not on any blood thinners. He
is on aspirin 162 mg daily. He was unable to tolerate rectal exam in ER. I did try to disimpact myself however, he did not tolerate much of the rectal exam at all. He had a significant amount of discomfort. He would clench down. With
redirection he did allow very small amount of solid stool to be disimpacted that was light brown. There was no signs of blood. There is a very large amount of stool within his rectum that is not able to be disimpacted. Patient could not tolerate
any significant disimpaction whatsoever. The patient did ask us to stop the exam. He could not tolerate. Because of this consult will be placed to colorectal surgery as it may be necessary that he may require disimpaction under anesthesia.
Impression:
Severe fecal impaction with stercoral colitis
Severe constipation
Cognitive impairment
UTI
Plan:
- Patient already on Zosyn
- Unfortunately ER was unable to perform rectal exam.
- I was unable to perform any type of significant disimpaction whatsoever. Patient was unable to tolerate. Despite attempts with redirection, nursing at bedside.
- I am going to place a colorectal consult at this time. Patient may benefit from disimpaction under sedation. I did discuss with medicine attending.
-
-
Thank you for consultation and allowing me to participate in the patient's care. Please call the adaptive physical education specialist GI physician during the after hours with any questions or concerns.
[2025-01-04] MEDS: ZETIA 10 MG PO (08:31)
[2025-01-04 10:04] VITALS: BP 142/84
--- NOTE | 2025-01-04 12:19 | CM ---
Recent admission 12/01/24 -12/05/24 for urinary retention due to bladder stones, BPH. Initial assessment completed with patient who lives with his daughter in a 2 story home with B/B on and / bath on , no steps to enter home. GI ASST patient was
independent in ADL's and ambulation, drove. The only DME is supplies for self catheterization. No in-home services. Does have [employer]-POA. Was in the [employer]. No PCP, retired. Pharmacy is [facility]. Discharge POC: Home with no needs.
--- NOTE | 2025-01-04 12:33 | CON.MD ---
Addendum entered and electronically signed by Bello Resendiz MD 01/04/25 12:56:
Of note, full consult to be dictated.
Original Note:
Consultation - Medical
-
History, vitals, labs, imaging reviewed. Patient seen and examined this morning.
89-year-old male with multiple medical issues and CT scan showing fecal impaction with secondary stercoral proctitis/colitis. Unfortunately neither ER staff nor GI able to disimpact. Patient apparently did not tolerate SANJANA too well. On my own
exam he does have some mild suprapubic tenderness. He was not keen on a SANJANA by me, understandably. Discussed situation with the patient and recommended milk and molasses enema to see if this clears him. Ordered plain film of the abdomen for
tomorrow morning. If enema unsuccessful, may need to consider disimpaction under anesthesia this weekend.
Consultation
-
Date/Time Consultation Requested: 01/04/25
Date/Time Consultation Performed: 01/04/25
Reason for Consultation: fecal impaction
[2025-01-04 15:21] VITALS: BP 121/71
[2025-01-04] MEDS: FLOMAX 0.4 MG PO (16:37)
[2025-01-04] MEDS: SENOKOT 8.6 MG PO (23:38)
[2025-01-04 23:48] VITALS: BP 120/52
[2025-01-04] MEDS: TYLENOL 650 MG PO (23:48)
[2025-01-05] MEDS: NSS IV (03:36)
[2025-01-05] MEDS: NSS 1000 IV (05:00)
[2025-01-05] MEDS: ZOSYN 50 IV ×4 (05:00→22:03)
[2025-01-05 06:41] LABS: Hematocrit 27.6 % (39.0-52.0); Hemoglobin 8.9 g/dL (13.0-18.0); Mean Corp Hgb Conc. 32.2 g/dL (33.0-37.0); Mean Corpuscular Volume 94.2 fL (80.0-94.0); Platelet Count 182 10^3/uL (130-400); Red Cell Dist. Width 13.2 % (11.5-14.5)
[2025-01-05 07:00] VITALS: BP 104/43
[2025-01-05 07:02] LABS: Blood Urea Nitrogen 44 mg/dl (9-20); Calcium 9.1 mg/dl (8.4-10.2); Carbon Dioxide 25 mmol/L (22-30); Chloride 109 mmol/L (98-107); Estimated Creatinine Clearance 34 ml/min; Glucose 83 mg/dl (70-99); Potassium 4.0 mmol/L (3.5-5.1); Sodium 137 mmol/L (135-145); eGFR 58.53
[2025-01-05] MEDS: MIRALAX 17 GRAMS PO (07:50)
[2025-01-05] MEDS: SENOKOT 8.6 MG PO ×2 (07:51→20:39)
[2025-01-05] MEDS: ZETIA 10 MG PO (07:51)
--- NOTE | 2025-01-05 10:28 | W.PN.HOSP.TC ---
Today's Communication/Plan
-
tolerating regular diet
continue bowel regimen
IV Zosyn, awaiting urine culture
Assessment / Plan
Assessment / Plan
Assessment:
This is an 89 y/o male with pmhx of coronary artery disease, hyperlipidemia, BPH with chronic urinary retention requiring intermittent straight cath, who presented to the ED on 01/03/2025 with constipation, back pain and confusion and was found to
have severe fecal impaction.
Plan:
Severe Fecal Impaction with Acute Stercoral Colitis
-GI following and colorectal surgery has been consulted. manual disimpaction failed x 2; s/p milk of molasses enema with success
x-ray this AM with significant improvement, ordered for regular diet
-stop fluids
Cognitive Impairment
-Unclear at this time if patient's confusion is at his baseline, or if he has had an acute increase in confusion preceding this hospitalization. No records at this time indicate a formal diagnosis of Dementia, though records form 04/14/2022 report
cognitive impairment
-seems to have improved this morning, per discussion with RN
Urinary Tract Infection in a patient who utilizes a straight catheter
-Prior cultures from 11/2024 have been positive for Klebsiella and Enterococcus
-Urine cultures today pending
-Continue Zosyn, awaiting culture results
BPH with Chronic Urinary Retention
-Continue intermittent straight Cath
-Continue home meds (Finasteride and tamsulosin)
Coronary Artery disease
-Continue Aspirin
Anticipated Discharge: 24 - 48 hours
Subjective/Interval History
-
Date of Service: January 05, 2025
overall feeling better
had multiple BM yesterday
now seen eating breakfast
Objective Data
-
Labs:
Laboratory Results
01/05/25
06:19
WBC 4.0 L
Hgb 8.9 L
Hct 27.6 L
Plt Count 182
Sodium 137
Potassium 4.0
Chloride 109 H
Carbon Dioxide 25
BUN 44 H
Creatinine 1.2
Glucose 83
Calcium 9.1
Vital Signs:
Vital Signs
Temp Pulse Resp BP Pulse Ox
97.9 F 54 18 104/43 99
01/05/25 07:00 01/05/25 07:00 01/05/25 07:00 01/05/25 07:00 01/05/25 07:50
I&O
01/04/25 01/05/25 01/06/25
06:59 06:59 06:59
Intake Total 120 / 120 480 / 480
Output Total 500 / 500 1000 / 1000
Balance -380 / -380 -520 / -520
Review of Systems
-
History Source: Patient
All other systems: Reviewed and negative
Physical Exam
-
General: Well Developed, Well Nourished and No Apparent Distress
HEENT: Normocephalic and Atraumatic
Respiratory: Clear to Auscultation
Cardiac: Regular Rhythm and S1/S2
GI: Soft, Nontender and Normal Bowel Sounds
Skin: Warm and Dry
Neuro: Awake and Alert
Psych: Calm
Data Reviewed
-
Diagnostic Radiology: Report Reviewed by me
Labs: Labs Reviewed by me
--- NOTE | 2025-01-05 13:25 | W.PN.CRS1 ---
Today's Communication / Plan
-
Continue bowel regimen
Assessment/Plan
-
89 yo male presenting with stercoral colitis and fecal impaction.
AFVSS
Declined rectal exam at bedside today
S/P milk & molasses enema last night with good results per nursing staff.
Pain currently resolved
Urinary retention s/p straight cath overnight
ABD xr ordered today with relief of majority of impaction noted, still with quite a bit of stool burden
Plan:
Continue bowel regimen
ABX as per primary team
Ok for regular diet
Subjective Data
Subjective Data
Date of Service: January 05, 2025
Pt seen and examined at bedside with Dr. Resendiz. Denies pain. Reports he is hungry. Denies nausea.
Objective Data
-
Vital Signs
Temp Pulse Resp BP Pulse Ox
97.9 F 54 18 104/43 99
01/05/25 07:00 01/05/25 07:00 01/05/25 07:00 01/05/25 07:00 01/05/25 07:50
Intake & Output
01/04/25 01/05/25 01/06/25
06:59 06:59 06:59
Intake Total 120 / 120 480 / 480
Output Total 500 / 500 1000 / 1000
Balance -380 / -380 -520 / -520
Intake:
Oral fluids 120 / 120 480 / 480
Output:
Straight cath output 500 / 500 1000 / 1000
Lab Results
01/05/25 06:19
01/05/25 06:19
Physical Exam
-
General: No Acute Distress
Abdomen: Soft, Non Distended and Non Tender
Rectal: Other (patient declined)
Skin: Warm and Dry
Data Reviewed
-
Diagnostic Radiology: Image Reviewed and Report Reviewed
[2025-01-05 15:00] VITALS: BP 100/55
[2025-01-05] MEDS: FLOMAX 0.4 MG PO (16:03)
[2025-01-05] MEDS: PROSCAR 5 MG PO (20:39)
[2025-01-05 23:00] VITALS: BP 95/49
[2025-01-06] MEDS: ZOSYN 50 IV ×4 (03:59→21:49)
[2025-01-06 07:30] VITALS: BP 122/66
[2025-01-06] MEDS: SENOKOT 8.6 MG PO ×2 (09:53→21:42)
[2025-01-06] MEDS: MIRALAX 17 GRAMS PO ×2 (09:53→21:43)
[2025-01-06] MEDS: ZETIA 10 MG PO (09:53)
--- NOTE | 2025-01-06 11:23 | W.PN.HOSP.TC ---
Today's Communication/Plan
-
awaiting final urine culture results
continue bowel regimen
Assessment / Plan
Assessment / Plan
Assessment:
This is an 89 y/o male with pmhx of coronary artery disease, hyperlipidemia, BPH with chronic urinary retention requiring intermittent straight cath, who presented to the ED on 01/03/2025 with constipation, back pain and confusion and was found to
have severe fecal impaction.
Plan:
Severe Fecal Impaction with Acute Stercoral Colitis
-appreciate GI and CRS. manual disimpaction failed x 2; s/p milk of molasses enema with success and multiple BM since
x-ray AM 01/06 with significant improvement, ordered for regular diet
-stop fluids
Cognitive Impairment
-Unclear at this time if patient's confusion is at his baseline, or if he has had an acute increase in confusion preceding this hospitalization. No records at this time indicate a formal diagnosis of Dementia, though records form 04/14/2022 report
cognitive impairment
-seems to have improved since constipation treated, per discussion with RN
Urinary Tract Infection in a patient who utilizes a straight catheter
-Prior cultures from 11/2024 have been positive for Klebsiella and Enterococcus
-IV Zosyn
-culture with Klebsiella sensitive to Zosyn; 2nd bacteria is enterococcus - awaiting final sensitivities. Per micro lab, they need to re-plate enterococcus and final sensitivities will not result until tomorrow, 01/07. Patient's daughter is OK with
him staying until final sensitivity results to ensure correct antibiotics.
BPH with Chronic Urinary Retention
-Continue intermittent straight Cath
-Continue home meds (Finasteride and tamsulosin)
Coronary Artery disease
-Continue Aspirin
FULL CODE
DVT PPx SCD
Anticipated Discharge: 24 - 48 hours
Subjective/Interval History
-
Date of Service: January 06, 2025
feeling well
denies pain
having BM
Objective Data
-
Vital Signs:
Vital Signs
Temp Pulse Resp BP Pulse Ox
97 F 65 16 122/66 97
01/06/25 07:30 01/06/25 07:30 01/06/25 07:30 01/06/25 07:30 01/06/25 07:30
I&O
01/05/25 01/06/25 01/07/25
06:59 06:59 06:59
Intake Total 480 / 480 1880 / 1880
Output Total 1000 / 1000 500 / 500
Balance -520 / -520 1380 / 1380
Review of Systems
-
History Source: Patient
All other systems: Reviewed and negative
Physical Exam
-
General: Well Developed, Well Nourished and No Apparent Distress
HEENT: Normocephalic and Atraumatic
Respiratory: Clear to Auscultation
Cardiac: Regular Rhythm and S1/S2
GI: Soft, Nontender and Normal Bowel Sounds
Skin: Warm and Dry
Neuro: Awake and Alert
Psych: Calm
Data Reviewed
-
Diagnostic Radiology: Report Reviewed by me
Labs: Labs Reviewed by me
[2025-01-06] MEDS: ASPIR LOW (ENTERIC COATED) 162 MG PO (12:48)
[2025-01-06 14:20] VITALS: BP 100/60; PULSE 82; O2SAT 99
--- NOTE | 2025-01-06 14:47 | CM ---
CM reviewed chart, call placed to patients daughter, Geetha, to discuss PT recommendation of home health. Daughter declining at this time. Daughter will provide transportation home upon discharge. CM will continue to follow for all discharge
planning needs.
Plan; home with daughter
[2025-01-06 15:49] VITALS: BP 120/54
[2025-01-06] MEDS: FLOMAX 0.4 MG PO (16:51)
[2025-01-06] MEDS: PROSCAR 5 MG PO (21:42)
[2025-01-06 23:00] VITALS: BP 139/55
--- NOTE | 2025-01-06 23:59 | PTCARENOTE ---
Addendum entered by Kalyani Vann RN 01/07/25 00:32:
straight cath performed for 700ml
Original Note:
Pt was bladder scanned after voiding. Scan showed greater than 736. Explained to pt that he would need to be straight cathed. He refused saying he wants to wait until the morning. Husam GONZALEZ aware. asked to try explaining to pt that it
is important to get the urine out of his bladder as it is not good for him. RN will try.
[2025-01-07] MEDS: ZOSYN 50 IV ×3 (04:24→15:41)
[2025-01-07 07:25] VITALS: BP 128/60
[2025-01-07] MEDS: MIRALAX 17 GRAMS PO (08:16)
[2025-01-07] MEDS: ZETIA 10 MG PO (08:16)
[2025-01-07] MEDS: SENOKOT 8.6 MG PO (08:16)
--- NOTE | 2025-01-07 11:14 | W.PN.HOSP.TC ---
Addendum entered and electronically signed by Daniel Avalos MD 01/11/25 13:34:
Urinary Tract Infection, unable to be certain if related to catheter/device insertion
Addendum entered and electronically signed by Daniel Avalos MD 01/07/25 14:54:
[id number]
Addendum entered and electronically signed by Daniel Avalos MD 01/07/25 14:50:
Discharge for additional 11 days of Augmentin 875 twice daily to complete 14-day course
Follow-up UA to ensure resolution outpatient
Original Note:
Today's Communication/Plan
-
BM regimen
abx for UTI
DC with cbc and cmp in 1 week
F/u PCP and Urology outpt
Assessment / Plan
Assessment / Plan
Assessment:
This is an 89 y/o male with pmhx of coronary artery disease, hyperlipidemia, BPH with chronic urinary retention requiring intermittent straight cath, who presented to the ED on 01/03/2025 with constipation, back pain and confusion and was found to
have severe fecal impaction.
Plan:
Severe Fecal Impaction with Acute Stercoral Colitis, resolved
-appreciate GI and CRS. manual disimpaction failed x 2; s/p milk of molasses enema with success and multiple BM since
x-ray AM 01/06 with significant improvement, ordered for regular diet
-stop fluids
-DC on BM regimen, fiber
Acute metabolic encephalopathy, resolved
-Resolved
-Most likely 2/2 to UTI
-records form 04/14/2022 report cognitive impairment
Urinary Tract Infection in a patient who utilizes a straight catheter
-Prior cultures from 11/2024 have been positive for Klebsiella and Enterococcus
-IV Zosyn
-culture with Klebsiella sensitive to Zosyn; 2nd bacteria is enterococcus - awaiting final sensitivities. Per micro lab, they need to re-plate enterococcus and final sensitivities will not result until tomorrow, 01/07.
-Await urine cultures and can clear for dc with abx for 14 day total course
BPH with Chronic Urinary Retention
-Continue intermittent straight Cath
-Continue home meds (Finasteride and tamsulosin)
-F/u urology outpatient
Coronary Artery disease
-Continue Aspirin
FULL CODE
DVT PPx SCD
More than 30 minutes spent in discharge including
Final examination of the patient
Summarizing hospital stay
Instructions for continuing care to all relevant caregivers
Preparation of discharge records, prescriptions, and referral forms
Total time spent (in minutes): 36
Anticipated Discharge: Today
Subjective/Interval History
-
Date of Service: January 07, 2025
no acute events, having BMs, mental status resolved
Objective Data
-
Vital Signs:
Vital Signs
Temp Pulse Resp BP Pulse Ox
97.6 F 58 16 128/60 98
01/07/25 07:25 01/07/25 07:25 01/07/25 07:25 01/07/25 07:25 01/07/25 08:00
I&O
01/06/25 01/07/25 01/08/25
06:59 06:59 06:59
Intake Total 1880 / 1880 720 / 720
Output Total 500 / 500 700 / 700
Balance 1380 / 1380 20 / 20
Review of Systems
-
History Source: Patient
All other systems: Not reviewed unless documented
Data Reviewed
-
Diagnostic Radiology: Report Reviewed by me
CT Scan: Report Reviewed by me
Labs: Labs Reviewed by me
--- NOTE | 2025-01-07 12:20 | CM ---
Addendum entered by Katrin John 01/07/25 12:24:
IMM provided and signed; placed in chart.
Original Note:
Pt cleared for discharge today. VN recommended, but declined by pt's daughter.
Plan: Discharge to home today. Daughter will drive.
--- NOTE | 2025-01-07 14:50 | W.DS.TRANS ---
DC Summary - [employer]
-
Discharge Instructions:
Discharge Diagnosis/Procedures Severe Fecal Impaction with Acute Stercoral
Colitis
Urinary Tract Infection in a patient who
utilizes a straight catheter - Klebsiella
pneumoniae and Enterococcus Faecalis
Acute metabolic encephalopathy
Diet Low Cholesterol,Low Fat
Activity As tolerated
Blood Work cbc and cmp in 1 week with pcp
Others Tests would follow up to ensure UA is clearing with
PCP within 5 days
Instructions:
Stand-Alone Forms:
Changes to Home Medications: Yes
Discharge Medications:
DC Medications w/original date entered in [facility]
cholecalciferol (vitamin D3) 125 mcg (5,000 unit) tablet (Vitamin D3) 125 mcg PO DAILY Supplement 03/29/22
cyanocobalamin (vitamin B-12) 1,000 mcg tablet (Vitamin B-12) 1,000 mcg PO DAILY Supplement 03/29/22
ezetimibe 10 mg tablet (Zetia) 10 mg PO DAILY High cholesterol 03/29/22
finasteride 5 mg tablet 5 mg PO HS Urinary issue/Prostatic 03/29/22
folic acid 400 mcg tablet 0.4 mg PO DAILY Supplement 03/29/22
multivitamin 1 tab PO Q48H Supplement 03/29/22
pyridoxine (vitamin B6) 100 mg tablet (Vitamin B-6) 100 mg PO DAILY Supplement 03/29/22
tamsulosin 0.4 mg capsule 0.4 mg PO QPM Urinary issue 03/29/22
vitamin A 2,400 mcg capsule 8,000 unit PO DAILY Supplement 03/29/22
Pepcid 1 tab PO QPM 01/03/25
Probiotic 4 In 1 1 cap PO DAILY@1600 01/03/25
ascorbic acid (vitamin C) 500 mg tablet (Vitamin C) 500 mg PO DAILY 01/03/25
aspirin 81 mg tablet,delayed release 162 mg PO HS 01/03/25
inulin 2 gram chewable tablet 2 g PO DAILY@1600 01/03/25
amoxicillin 875 mg-potassium clavulanate 125 mg tablet 1 tab PO Q12H 11 days #22 tabs 01/07/25
bisacodyl 5 mg tablet,delayed release 10 mg (2 x 5 mg) PO DAILYPRN PRN Constipation #60 tabs 01/07/25
polyethylene glycol 3350 17 gram oral powder packet 17 g PO BID #100 ea 01/07/25
sennosides 8.6 mg tablet (Pily-radames) 8.6 mg PO BID #90 tabs 01/07/25
Home Medication Changes
amoxicillin 875 mg-potassium clavulanate 125 mg tablet 1 tab PO Q12H 11 days #22 tabs 01/07/25
bisacodyl 5 mg tablet,delayed release 10 mg (2 x 5 mg) PO DAILYPRN PRN Constipation #60 tabs 01/07/25
polyethylene glycol 3350 17 gram oral powder packet 17 g PO BID #100 ea 01/07/25
sennosides 8.6 mg tablet (Pily-radames) 8.6 mg PO BID #90 tabs 01/07/25
Pending Results: No
--- NOTE | 2025-01-07 15:03 | PN.CDI ---
CDI
- -
CDI:
Physician Documentation Request
Admit Date: 01/03/25 21:21
Dear Doctor,
Please review the following and provide your response in the progress notes.
Clinical Indicators:
Pt admitted for severe fecal impaction with acute stercoral colitis, and UTI.
01/07 Progress Note: ' Urinary Tract Infection in a patient who utilizes a straight catheter.'
Please clarify the relationship between these conditions:
Yes, UTI is related to/associated with/due to straight catheterization.
No, UTI is not related to/associated with/due to straight catheterization.
Other
Use of terms such as suspected, likely, concern for, or probable (associated with a specific diagnosis that is being evaluated, monitored, or treated as if it exists) are acceptable and can be coded in the inpatient setting, when documented at the
time of discharge.
Thank you,
Anushka Payne RN, BSN
CDI Specialist
[employer]
Please use your independent medical judgment in providing your response.
[2025-01-07 15:25] VITALS: BP 113/67
[2025-01-07] MEDS: FLOMAX 0.4 MG PO (18:30)
== END 2025-01-07 19:35 | disposition home or self-care (01) | DRG 388 ==
LOC: 4 WEST ACU 21:21
PROVIDERS: Emergency Medicine; Physician Assistant; Physician Assistant Medical; ADMITTING PHYSICIAN Internal Medicine; ATTENDING PHYSICIAN Internal Medicine; CONSULT PHYSICIAN Internal Medicine Gastroenterology; CONSULT PHYSICIAN Surgery; EMERGENCY PHYSICIAN Emergency Medicine
DX: K56.41 Fecal impaction (principal); G93.41 Metabolic encephalopathy; N39.0 Urinary tract infection, site not specified; K52.89 Other specified noninfective gastroenteritis and colitis; E78.00 Pure hypercholesterolemia, unspecified; I25.10 Atherosclerotic heart disease of native coronary artery without angina pectoris; N40.1 Benign prostatic hyperplasia with lower urinary tract symptoms; R33.8 Other retention of urine; I10 Essential (primary) hypertension; N31.9 Neuromuscular dysfunction of bladder, unspecified; D64.9 Anemia, unspecified; B96.1 Klebsiella pneumoniae [K. pneumoniae] as the cause of diseases classified elsewhere; B95.2 Enterococcus as the cause of diseases classified elsewhere; F03.90 Unspecified dementia, unspecified severity, without behavioral disturbance, psychotic disturbance, mood disturbance, and anxiety; Z79.82 Long term (current) use of aspirin; Z79.899 Other long term (current) drug therapy; Z95.3 Presence of xenogenic heart valve
CPT/HCPCS: 74018; 74177; 80048; 80053; 81003; 81015; 83605; 83735; 85025; 85027; 85610; 86850; 86900; 86901; 87077; 87086; 87186; 93005; 96365; 96375; 97116; 97162; 97167; 99285; Q9967

== ENCOUNTER → 2025-01-14 10:29 | Outpatient (REF) | payer MEDICARE, BC, SELFPAY ==
[2025-01-14 15:38] LABS: Hematocrit 30.8 % (39.0-52.0); Hemoglobin 9.7 g/dL (13.0-18.0); Mean Corp Hgb Conc. 31.5 g/dL (33.0-37.0); Mean Corpuscular Volume 94.2 fL (80.0-94.0); Platelet Count 194 10^3/uL (130-400); Red Cell Dist. Width 13.2 % (11.5-14.5)
[2025-01-14 15:41] LABS: Blood Urea Nitrogen 38 mg/dl (9-20); Calcium 9.8 mg/dl (8.4-10.2); Carbon Dioxide 27 mmol/L (22-30); Chloride 106 mmol/L (98-107); Glucose 97 mg/dl (70-99); Potassium 4.3 mmol/L (3.5-5.1); Sodium 136 mmol/L (135-145); eGFR > 60.00
[2025-01-14 16:12] LABS: PSA, Total - Diagnostic 4.81 ng/ml (0.0-4.0)
== END ==
LOC: HWLAB 10:29
PROVIDERS: ATTENDING PHYSICIAN Specialist
DX: N40.1 Benign prostatic hyperplasia with lower urinary tract symptoms (principal); R97.20 Elevated prostate specific antigen [PSA]
CPT/HCPCS: 36415; 80048; 84153; 85027